=== PATIENT | female | born 1965 | race Caucasian/White ===

== ENCOUNTER 2020-03-01 17:03 | Outpatient (REF) | payer OTHER, SELFPAY ==
--- NOTE | 2020-03-01 | MM_ITS ---
EXAMINATION: MM SCREENING DIGITAL BREAST TOMOSYNTHESIS, BILATERAL CLINICAL INFORMATION: Screening. Asymptomatic. The lifetime risk of breast cancer based on the Tyrer-Cuzick Model is 16%. COMPARISON: Mammography: August 11, 2018 and studies dating back to January 31, 2012. TECHNIQUE: Digital breast tomosynthesis is performed in both the craniocaudal and mediolateral oblique views along with computer-aided detection (CAD). Synthesized 2D images are generated from the tomosynthesis. Cleavage view performed. FINDINGS: The breasts are almost entirely fatty (ACR BI-RADS breast composition Category a). There are no significant masses, abnormal calcifications, or other abnormalities. MM/MM tomosynthesis screening BI IMPRESSION: There are no significant changes from prior study. ASSESSMENT: BI-RADS 1: Negative RECOMMENDATION: Routine annual mammography screening. This patient's information was entered into a reminder system with a target due date for their next mammogram.
== END 2020-03-01 17:04 | disposition home or self-care (01) ==
LOC: HO.MAMMO 17:03
PROVIDERS: PCP Internal Medicine; Visit Provider Internal Medicine
DX: Z12.31 Encounter for screening mammogram for malignant neoplasm of breast (principal)
CPT/HCPCS: 77063; 77067

== ENCOUNTER 2020-05-24 11:11 | Outpatient (REF) | payer OTHER, SELFPAY ==
[2020-05-24 14:33] LABS: Alanine Aminotransferase 38 U/L (0-31); Anion Gap 13 (12-20); Aspartate Amino Transferase 35 U/L (5-31); Blood Urea Nitrogen 15 mg/dL (9-16); Calcium 9.4 mg/dL (8.4-10.2); Carbon Dioxide 28 mmol/L (22-29); Chloride 99 mmol/L (96-108); Cholesterol 244 mg/dL; Estimated Glomerular Filt Rate > 60; Glucose Fasting 104 mg/dL (60-99); HDL Cholesterol 76 mg/dL; LDL Cholesterol Calculated 134 mg/dl; Sodium 136 mmol/L (135-145); Triglycerides 174 mg/dL
[2020-05-24 14:55] LABS: Vitamin D 25-OH Total 26.7 ng/mL (>30)
== END 2020-05-24 11:12 | disposition home or self-care (01) ==
LOC: HO.HMGCLDS 11:11
PROVIDERS: PCP Internal Medicine; Visit Provider Internal Medicine
DX: Z00.01 Encounter for general adult medical examination with abnormal findings (principal); E66.01 Morbid (severe) obesity due to excess calories; I10 Essential (primary) hypertension; K21.9 Gastro-esophageal reflux disease without esophagitis
CPT/HCPCS: 36415; 80048; 80061; 82306; 84450; 84460

== ENCOUNTER 2020-06-07 13:12 | Outpatient (REF) | payer OTHER, SELFPAY | END 2020-06-07 13:13 | disposition home or self-care (01) | LOC: HO.LAB 13:12 | PROVIDERS: PCP Internal Medicine; Visit Provider Obstetrics & Gynecology | DX: Z13.89 Encounter for screening for other disorder (principal) ==

== ENCOUNTER → 2020-10-23 08:29 | Outpatient (BNVA) | payer SELFPAY | PROVIDERS: PCP Internal Medicine; Visit Provider Internal Medicine | DX: Z02.79 Encounter for issue of other medical certificate (principal) ==

== ENCOUNTER 2021-02-28 08:46 | Outpatient (REF) | payer OTHER, SELFPAY ==
[2021-02-28 11:39] LABS: Estimated Average Glucose 103 mg/dL; Hemoglobin A1c % 5.2 %
[2021-02-28 11:52] LABS: Alanine Aminotransferase 31 U/L (0-31); Anion Gap 14 (12-20); Aspartate Amino Transferase 31 U/L (5-31); Blood Urea Nitrogen 15 mg/dL (9-16); Calcium 9.6 mg/dL (8.4-10.2); Carbon Dioxide 28 mmol/L (22-29); Chloride 102 mmol/L (96-108); Cholesterol 218 mg/dL; Estimated Glomerular Filt Rate > 60; Glucose Fasting 111 mg/dL (60-99); HDL Cholesterol 64 mg/dL; LDL Cholesterol Calculated 108 mg/dl; Potassium 4.6 mmol/L (3.3-5.1); Sodium 139 mmol/L (135-145); Triglycerides 230 mg/dL
[2021-02-28 12:16] LABS: Vitamin D 25-OH Total 29.9 ng/mL (>30)
== END 2021-02-28 08:47 | disposition home or self-care (01) ==
LOC: HO.HMGCLDS 08:46
PROVIDERS: PCP Internal Medicine; Visit Provider Internal Medicine
DX: E66.01 Morbid (severe) obesity due to excess calories (principal); I10 Essential (primary) hypertension; R73.01 Impaired fasting glucose; Z78.0 Asymptomatic menopausal state
CPT/HCPCS: 36415; 80048; 80061; 82306; 83036; 84450; 84460

== ENCOUNTER → 2021-06-13 09:38 | Outpatient (BNVA) | payer OTHER, SELFPAY | PROVIDERS: PCP Internal Medicine; Visit Provider Obstetrics & Gynecology | DX: Z13.89 Encounter for screening for other disorder (principal) ==

== ENCOUNTER 2021-12-20 08:52 | Outpatient (REF) | payer OTHER, SELFPAY ==
--- NOTE | ~2021-12-20 | MM_ITS ---
EXAMINATION: MM SCREENING DIGITAL BREAST TOMOSYNTHESIS, BILATERAL CLINICAL INFORMATION: Screening. Asymptomatic. Prior history reduction mammoplasty, 2005. The lifetime risk of breast cancer based on the Tyrer-Cuzick Model is 15%. COMPARISON: Mammography: 03/01/2020, 08/11/2018, 07/29/2017 TECHNIQUE: Digital breast tomosynthesis is performed in both the craniocaudal and mediolateral oblique views along with computer-aided detection (CAD). Synthesized 2D images are generated from the tomosynthesis. FINDINGS: There are scattered areas of fibroglandular density (ACR BI-RADS breast composition Category b). Parenchymal pattern is similar to prior studies exam. Minor stromal scarring consistent with the prior reduction mammoplasty. Benign asymmetric density mid medial left breast stable. There is no developing density or interval mass or architectural abnormality. No abnormal calcifications. No significant changes. MM/MM tomosynthesis screening BI IMPRESSION: No mammographic evidence of malignancy. ASSESSMENT: BI-RADS 2: Benign RECOMMENDATION: Routine annual mammography screening. This patient's information was entered into a reminder system with a target due date for their next mammogram.
== END 2021-12-20 08:53 | disposition home or self-care (01) ==
LOC: HO.MAMMO 08:52
PROVIDERS: PCP Internal Medicine; Visit Provider Internal Medicine
DX: Z12.31 Encounter for screening mammogram for malignant neoplasm of breast (principal)
CPT/HCPCS: 77063; 77067

== ENCOUNTER 2022-10-22 10:30 | Outpatient (AMB) | payer MEDICAID, SELFPAY ==
--- NOTE | 2022-10-22 10:33 | A.OFFVIS_ITS ---
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 Last Pap smear was in 2012.? The patient had a hysterectomy for vaginal bleeding, has history of low-grade NORMA prior to that.? Last mammogram was BI-RADS 2 in 12/13.? Last colonoscopy 5 years ago, the patient will be due for another screening colonoscopy in 5 years? [facility] Medical History Bee sting allergy Essential hypertension Facial skin lesion GERD (gastroesophageal reflux disease) Impaired fasting glucose LGSIL (low grade squamous intraepithelial dysplasia) Morbid obesity Postmenopausal symptoms Surgical History History of appendectomy History of knee surgery History of removal of ovarian cyst History of ureter stent History of vaginal hysterectomy Hx of cholecystectomy S/P total knee arthroplasty Status post breast reduction Family History Father Myocardial infarction Mother No problems noted. Brother No problems noted. Brother No problems noted. Sister Breast CA Sister No problems noted. Sister No problems noted. Social History Housing: House Alcohol intake: current Patient Tobacco Use Status: Never used Tobacco e-Cigarette/Vaping Use: Never Used Current occupational status: employed Female Reproductive History Menstrual Age of Menarche: 7 control method: permanent sterilization Total pregnancies: 8 Full term: 3 Number of Living Children: 3 Ab spontaneous: 5 Date of last pap smear: 10/01/12 (CIN1) History of abnormal pap smear: Yes Date of Mammogram: 12/20/21 Review of Systems Const All systems reviewed & are unremarkable except as noted in HPI and below Card Reports as per HPI and Reports no additional complaints Resp Reports as per HPI and Reports no additional complaints GI Reports as per HPI and Reports no additional complaints Reports as per HPI Physical Exam Vital Signs: BMI result Body Mass Index 44.6 Const General: cooperative, healthy appearing and comfortable General: Yes bladder normal to palpation External Female Exam: No lesion Speculum Exam - Vagina: normal appearance of the vagina, normal vaginal discharge and not erythematous Speculum Exam - Cervix: Cervix absent Bimanual exam- vagina & uterus: bladder normal to palpation and uterus absent Bimanual Exam- Adnexa, other: Other (No masses detected) Assessment & Plan Assessment & Plan (1) Well woman exam: Comment: History of EFREM 1 in 2012 Code(s): Z01.419 - Encounter for gynecological examination (general) (routine) without abnormal findings Plan: No Co testing indicate. Counseled the patient about the recommended dietary allowance of 1200 mg of Calcium & 600 IU of vitamin D. Instruction given to patient to schedule her next screening Mammogram in 12/14, order placed , the patient is up-to-date with her screening colonoscopy . The patient was instructed to perform monthly self-breast exams and schedule annual exam in a year; all questions answered and the patient verbalized understanding. Orders: Orders MM screening mammo BI Today Z12.31 - Encounter for screening mammogram for malignant neoplasm of breast Coding Level of Care Code Est Pt Prev Care 40-64y(55804) Diagnoses Well woman exam Z01.419
[2022-10-22 10:38] VITALS: BP 126/78; BMI 44.6
== END 2022-10-22 10:51 | disposition home or self-care (01) ==
LOC: HO.HWS 10:30
PROVIDERS: PCP Internal Medicine; Visit Provider Obstetrics & Gynecology
DX: Z01.419 Encounter for gynecological examination (general) (routine) without abnormal findings (principal)
CPT/HCPCS: 99396

== ENCOUNTER → 2022-10-22 10:30 | Outpatient (BNVA) | payer OTHER, SELFPAY | PROVIDERS: PCP Internal Medicine; Visit Provider Obstetrics & Gynecology ==

== ENCOUNTER 2022-10-24 14:59 | Outpatient (AMB) | payer OTHER, SELFPAY ==
[2022-10-24 15:31] VITALS: BP 126/78; PULSE 86; O2SAT 96; BMI 44.3
--- NOTE | 2022-10-24 15:31 | MHC.PC.OV ---
Vital Signs 10/24/22 15:31 Height 5 ft 2 in Weight 242 lb BMI 44.3 BP 126/78 Blood Pressure Location Rt brachial Position Sitting Pulse 86 Pulse Source Pulse Oximeter Pulse Oximetry (%) 96 Oxygen Delivery Method Room Air Intake Visit Reasons: BP follow up Allergies bee pollen [BEE STINGS] Allergy (Severe, Verified 10/24/22 15:56) ANAPHALAXIS Medication List - Last Reconciled 10/24/22 by Rocio Jordan MD albuterol sulfate 90 mcg/actuation 2 puffs inhalation Q4-6H PRN cetirizine (Zyrtec) 10 mg PO DAILY PRN epinephrine 0.3 mg (0.3 mL) IM DIRECTED fluoxetine 10 mg PO DAILY hydrochlorothiazide 12.5 mg PO QAM lorazepam 0.5 mg PO DAILY PRN magnesium 500 mg PO DAILY multivitamin 1 tab PO DAILY olmesartan 5 mg PO DAILY pantoprazole 40 mg PO DAILY rhubarb root extract (Estroven Complete Menopause Relief) mg PO Tobacco use date assessed: 10/24/22 Dental Screening Dental Screen Date: 10/24/22 Did you have a dental visit in the last 12 months?: Yes Did you have a dental problem in the last 6 months where you did not have access to dental care?: No Was dental information given to patient?: No HPI BP follow up HPI Details 57-year-old lady with hypertension, morbid obesity impaired fasting glucose, here today for follow-up on her blood pressure. She states that her blood pressure has been staying elevated over the last several weeks, admits to not being compliant with her diet and not getting any regular exercise due to the oppressive heat. Currently taking olmesartan 5 mg once a day, but has taken 25 mg of her hydrochlorothiazide instead of 12.5 mg 2 days last week, as she has started to feel bloated and blood pressure has been elevated . [facility] Medical History Bee sting allergy Essential hypertension Facial skin lesion GERD (gastroesophageal reflux disease) Impaired fasting glucose LGSIL (low grade squamous intraepithelial dysplasia) Morbid obesity Postmenopausal symptoms Surgical History History of appendectomy History of knee surgery History of removal of ovarian cyst History of ureter stent History of vaginal hysterectomy Hx of cholecystectomy S/P total knee arthroplasty Status post breast reduction Family History Father Myocardial infarction Mother No problems noted. Brother No problems noted. Brother No problems noted. Sister Breast CA Sister No problems noted. Sister No problems noted. Social History Housing: House Alcohol intake: current Patient Tobacco Use Status: Never used Tobacco e-Cigarette/Vaping Use: Never Used Current occupational status: employed Cognitive needs: No Hearing needs: No Vision needs: No Female Reproductive History Menstrual Age of Menarche: 7 Questionnaire PHQ-9 Over the last 2 weeks, how often have you been bothered by any of the following problems? Depression Screening Interpretation: Negative Source: Developed by Drs. Eip Resendez, Faye Garay, Dalton Rasmussen and colleagues, with an educational deepti from [employer]. Thrive Questionnaire Date Thrive assessed: 03/07/21 AUDIT C Alcohol Use Questionnaire (AUDIT-C) 1. How often do you have a drink containing alcohol?: Monthly or less 2. How many drinks containing alcohol do you have on a typical day when you are drinking?: 1 or 2 3. How often do you have six or more drinks on one occasion?: Never Total Score: 1 Score Reviewed/Action Taken: Yes NADIA-7 AMB Questionnaire NADIA-7 Date NADIA - 7 assessed: 03/07/21 Source: Developed by Drs. Epi Resendez, Faye Garay, Dalton Rasmussen and colleagues, with an educational deepti from [employer]. Review of Systems Const All systems reviewed & are unremarkable except as noted in HPI and below Card Denies chest pain, Denies chest pain with activity, Denies irregular heart rhythm and Denies lightheadedness Resp Reports no additional complaints GI Reports no additional complaints Neuro Reports no additional complaints Physical exam (Primary Care) Vital Signs: Last Vital Signs Pulse 86 10/24/22 15:31 BP 126/78 10/24/22 15:31 Pulse Ox 96 10/24/22 15:31 Oxygen Delivery Method Room Air 10/24/22 15:31 BMI result Body Mass Index 44.3 BMI Assessment/Plan discussion: High BMI High, discussed plan: lifestyle, weight reduction, dietary and physical activity Tobacco/Smoking Status: Tobacco use Status Tobacco use date assessed 10/24/22 10/24/22 15:34 Patient Tobacco Use Status Never used Tobacco 10/24/22 15:34 e-Cigarette/Vaping Use Never Used 10/24/22 15:34 Depression Screening Interpretation: Negative Thrive Assessment: Date of Thrive Assessment Date Thrive assessed 03/07/21 10/24/22 15:34 Const General: comfortable and no acute distress Nutritional Appearance: obese Orientation/consciousness: patient oriented x3 HENMT Ears: external ears normal General nose exam: Normal external nose present, Normal nasal mucous membranes and turbinates present and No nasal discharge present Mouth: oropharynx normal and moist mucous membranes Eyes General: appearance normal, both eyes and all related structures Neck Neck: Yes full ROM, Yes no lymphadenopathy and Yes supple Resp Effort & Inspection: normal respiratory effort and able to speak in complete sentences Auscultation: clear to auscultation bilaterally Cardio Rate: regular rate Rhythm: regular rhythm Heart sounds: S1 normal heart sound present and S2 normal heart sound present GI Inspection: Yes normal to inspection Palpation (GI): Soft to palpation, nontender and no masses Auscultation: normal bowel sounds Neuro General: patient oriented x3, gait normal, tone normal, moves all extremities, Normal light touch and pain sensation and no focal motor deficits Cognition (Neuro): normal cognition Gait exam (Neuro): Normal gait present Motor exam (neuro): 5/5 motor strength present throughout Assessment and Plan Assessment & Plan (1) Essential hypertension: Code(s): I10 - Essential (primary) hypertension Plan: Discontinued olmesartan and hydrochlorothiazide and switched to uncertain-HCTZ at 20-12.5 mg per tablet to take once a day in a.m., Blood pressure goal is less than 130/80. . Reinforced importance of following a low sodium diet, getting regular exercise, and lowering stress levels. (2) Impaired fasting glucose: Code(s): R73.01 - Impaired fasting glucose Plan: Your fasting blood sugars were elevated above 100 mg/dL. Impaired glucose metabolism O2 at risk for developing diabetes mellitus type 2, as well as heart attack and stroke later on. Lifestyle changes at just weight loss, healthy eating habits, and regular exercise are important, and can prevent the progression to diabetes (3) Morbid obesity: Code(s): E66.01 - Morbid (severe) obesity due to excess calories Orders: Orders Alanine Aminotransferase Today E66.01 - Morbid (severe) obesity due to excess calories, I10 - Essential (primary) hypertension, R73.01 - Impaired fasting glucose Aspartate Amino Transferase Today E66.01 - Morbid (severe) obesity due to excess calories, I10 - Essential (primary) hypertension, R73.01 - Impaired fasting glucose Basic Metabolic Panel Fasting Today E66.01 - Morbid (severe) obesity due to excess calories, I10 - Essential (primary) hypertension, R73.01 - Impaired fasting glucose Lipid Panel Today E66.01 - Morbid (severe) obesity due to excess calories, I10 - Essential (primary) hypertension, R73.01 - Impaired fasting glucose Medications: New olmesartan-hydrochlorothiazide 20-12.5 mg 1 tab PO DAILY 90 tabs 1RF Discontinued olmesartan Discontinued Reason: Doctor's Order 5 mg PO DAILY 90 tabs 0RF hydrochlorothiazide Discontinued Reason: Doctor's Order 12.5 mg PO QAM 90 tabs 3RF Coding Level of Care Code Est Pt Level 3 (94949) Diagnoses Essential hypertension I10 Impaired fasting glucose R73.01 Morbid obesity E66.01
== END 2022-10-24 16:09 | disposition home or self-care (01) ==
PROVIDERS: PCP Internal Medicine; Visit Provider Internal Medicine
DX: I10 Essential (primary) hypertension (principal); R73.01 Impaired fasting glucose; E66.01 Morbid (severe) obesity due to excess calories; Z68.41 Body mass index [BMI] 40.0-44.9, adult
CPT/HCPCS: 99213

== ENCOUNTER 2022-10-29 09:23 | Outpatient (REF) | payer OTHER, SELFPAY ==
[2022-10-29 13:14] LABS: Alanine Aminotransferase 44 U/L (0-31); Anion Gap 13 (12-20); Aspartate Amino Transferase 31 U/L (5-31); Blood Urea Nitrogen 13 mg/dL (9-16); Calcium 9.4 mg/dL (8.4-10.2); Carbon Dioxide 30 mmol/L (22-29); Chloride 102 mmol/L (96-108); Cholesterol 180 mg/dL; Estimated Glomerular Filt Rate > 60; Glucose Fasting 108 mg/dL (60-99); HDL Cholesterol 54 mg/dL; LDL Cholesterol Calculated 82 mg/dl; Potassium 3.7 mmol/L (3.3-5.1); Sodium 141 mmol/L (135-145); Triglycerides 223 mg/dL
== END 2022-10-29 09:24 | disposition home or self-care (01) ==
LOC: HO.HMGCLDS 09:23
PROVIDERS: PCP Internal Medicine; Visit Provider Internal Medicine
DX: E66.01 Morbid (severe) obesity due to excess calories (principal); R73.01 Impaired fasting glucose; I10 Essential (primary) hypertension
CPT/HCPCS: 36415; 80048; 80061; 84450; 84460

== ENCOUNTER 2022-11-08 13:18 | Outpatient (AMB) | payer OTHER, SELFPAY ==
[2022-11-08 13:33] VITALS: BP 124/76; PULSE 74; O2SAT 98; BMI 44.6
--- NOTE | 2022-11-08 13:33 | A.OFFPC_ITS ---
Vital Signs 11/08/22 13:33 Height 5 ft 2 in Weight 244 lb BMI 44.6 BP 124/76 Blood Pressure Location Rt brachial Position Sitting Pulse 74 Pulse Source Pulse Oximeter Pulse Oximetry (%) 98 Intake Visit Reasons: PE Intake Note: pt is here for physical exam Rate Marker Required: No Allergies bee pollen [BEE STINGS] Allergy (Severe, Verified 11/08/22 13:46) ANAPHALAXIS Medication List - Last Reconciled 11/08/22 by Rocio Jordan MD albuterol sulfate 90 mcg/actuation 2 puffs inhalation Q4-6H PRN cetirizine (Zyrtec) 10 mg PO DAILY PRN epinephrine 0.3 mg (0.3 mL) IM DIRECTED fluoxetine 10 mg PO DAILY lorazepam 0.5 mg PO DAILY PRN magnesium 500 mg PO DAILY multivitamin 1 tab PO DAILY olmesartan-hydrochlorothiazide 20-12.5 mg 0.5 tabs PO DAILY pantoprazole 40 mg PO DAILY rhubarb root extract (Estroven Complete Menopause Relief) mg PO Tobacco use date assessed: 10/24/22 Dental Screening Dental Screen Date: 11/08/22 Did you have a dental visit in the last 12 months?: Yes Did you have a dental problem in the last 6 months where you did not have access to dental care?: No Was dental information given to patient?: Patient has dentist HPI PE HPI Details 57-year-old lady with hypertension, history of impaired fasting glucose, and history of depression, morbid obesity and chronic GERD, here today for physical exam. Blood pressure stable and controlled on olmesartan-HCTZ . Patient has just been taking half a tablet daily in a.m.. Feels well, with no complaints of headache, no lightheadedness, chest pain or shortness of breath. Gardners lightheaded which he took the whole tablet. She is up-to-date with her screening colonoscopy done [place] [address] Pro, to be repeated again in 2028. She is up-to-date with her screening mammogram, due again in November 2022. [facility] Medical History (Updated 11/11/22 @ 00:30 by Rocio Jordan MD) Bee sting allergy Depression, major, in remission Essential hypertension Facial skin lesion GERD (gastroesophageal reflux disease) Impaired fasting glucose LGSIL (low grade squamous intraepithelial dysplasia) Morbid obesity Postmenopausal symptoms Surgical History History of appendectomy History of knee surgery History of removal of ovarian cyst History of ureter stent History of vaginal hysterectomy Hx of cholecystectomy S/P total knee arthroplasty Status post breast reduction Family History Father Myocardial infarction Mother No problems noted. Brother No problems noted. Brother No problems noted. Sister Breast CA Sister No problems noted. Sister No problems noted. Social History Housing: House Alcohol intake: current Patient Tobacco Use Status: Never used Tobacco e-Cigarette/Vaping Use: Never Used Current occupational status: employed Cognitive needs: No Hearing needs: No Vision needs: No Female Reproductive History Menstrual Age of Menarche: 7 Date of last pap smear: 10/22/22 Date of Mammogram: 12/13/21 Questionnaire PHQ-9 Over the last 2 weeks, how often have you been bothered by any of the following problems? 1. Little interest or pleasure in doing things: not at all 2. Feeling down, depressed, or hopeless: not at all 3. Trouble falling or staying asleep, or sleeping too much: not at all 4. Feeling tired or having little energy: not at all 5. Poor appetite or overeating: not at all 6. Feeling bad about yourself - or that you are a failure or have let yourself or your family down: not at all 7. Trouble concentrating on things, such as reading the newspaper or watching television: not at all 8. Moving or speaking so slowly that other people could have noticed. Or the opposite - being so fidgety or restless that you have been moving around a lot more than usual: not at all 9. Thoughts that you would be better off or of hurting yourself in some way: not at all Total score: 0 Depression Screening Interpretation: Negative [id number] - PHQ-9 Billing: Yes Source: Developed by Drs. Epi Resendez, Faye Garay, Dalton Rasmussen and colleagues, with an educational deepti from [employer]. Thrive Questionnaire Date Thrive assessed: 11/08/22 I am a: Patient What is your living situation today?: I have a steady place to live Within the past 12 months, did the food you bought not last and you didn't have the money to get more?: Never true Within the past 12 months, did you worry whether your food would run out before you got money to buy more?: Never true Do you have trouble paying for medicines?: No Do you have trouble getting transportation to medical appointments?: No Do you have trouble paying your heating and electricity bill?: No Do you have trouble taking care of your child, family member or friend?: No Do you have trouble with day-to-day activities such as bathing, preparing meals, shopping, managing finances, etc.?: No Are you currently unemployed and looking for a job?: No Are you interested in more education?: No Please select the resources that you would like help with: None Currently or been in a relationship where the following occur: no concerns reported AUDIT C Alcohol Use Questionnaire (AUDIT-C) 1. How often do you have a drink containing alcohol?: 2-3 times a week 2. How many drinks containing alcohol do you have on a typical day when you are drinking?: 1 or 2 3. How often do you have six or more drinks on one occasion?: Never Total Score: 3 NADIA-7 AMB Questionnaire NADIA-7 Date NADIA - 7 assessed: 11/08/22 Feeling nervous, anxious, or on edge: 0 = Not at all Not being able to stop or control worryin = Not at all Worrying too much about different things: 0 = Not at all Trouble relaxin = Not at all Being so restless that it is hard to sit still: 0 = Not at all Becoming easily annoyed or irritable: 0 = Not at all Feeling afraid as if something awful might happen: 0 = Not at all Total NADIA-7 score (0-4 normal; 5-9 mild; 10-14 moderate; 15-21 severe): 0 Source: Developed by Drs. Epi Resendez, Faye Garay, Dalton Rasmussen and colleagues, with an educational deepti from [employer]. NADIA-7 Assessment Billing NADIA-7 Assessment Tool: NADIA-7 Assessment 74531 Review of Systems Const Denies body aches, Denies fatigue, Denies fever(s), Denies headache(s), Denies lethargy, Denies malaise and Reports weight gain Eyes Denies change in vision ENT Denies dizziness, Denies headache(s), Denies hoarseness, Denies nasal discharge and Denies sore throat Card Denies chest pain, Denies chest pain with activity, Denies dyspnea and Denies dyspnea on exertion Resp Denies cough, Denies pain on inspiration, Denies pain with cough, Denies dyspnea, Denies dyspnea on exertion and Denies wheezing GI Denies abdominal pain, Denies change in bowel habits, Denies heartburn and Denies nausea Denies hematuria and Denies dysuria Musc Reports no additional complaints Skin/Breast Denies breast pain, Denies breast mass and Denies rash Neuro Denies dizziness and Denies headache(s) Psych Reports no additional complaints Endo Denies fatigue Real/Lymph Reports no additional complaints Aller/Immun Denies wheezing Physical exam (Primary Care) Vital Signs: Last Vital Signs Pulse 74 11/08/22 13:33 BP 124/76 11/08/22 13:33 Pulse Ox 98 11/08/22 13:33 BMI result Body Mass Index 44.6 BMI Assessment/Plan discussion: High BMI High, discussed plan: lifestyle, weight reduction, dietary and physical activity Tobacco/Smoking Status: Tobacco use Status Tobacco use date assessed 10/24/22 11/08/22 13:35 Patient Tobacco Use Status Never used Tobacco 11/08/22 13:35 e-Cigarette/Vaping Use Never Used 11/08/22 13:35 PHQ-9: PHQ-9 Score PHQ-9: Total score 0 11/08/22 13:52 Depression Screening Interpretation: Negative Thrive Assessment: Date of Thrive Assessment Date Thrive assessed 11/08/22 11/08/22 13:42 Currently or been in a relationship where the following occur: no concerns reported Const General: comfortable and no acute distress Nutritional Appearance: obese Orientation/consciousness: patient oriented x3 HENMT Ears: external ears normal General nose exam: Normal external nose present, Normal nasal mucous membranes and turbinates present and No nasal discharge present Mouth: oropharynx normal and moist mucous membranes Eyes General: appearance normal, both eyes and all related structures Neck Neck: Yes full ROM, Yes no lymphadenopathy and Yes supple Resp Effort & Inspection: normal respiratory effort and able to speak in complete sentences Auscultation: clear to auscultation bilaterally Cardio Rate: regular rate Rhythm: regular rhythm Heart sounds: S1 normal heart sound present and S2 normal heart sound present GI Inspection: Yes normal to inspection Palpation (GI): Soft to palpation, nontender and no masses Auscultation: normal bowel sounds General: Yes no CVA tenderness Back/Spine/Pelvis Back: no CVA tenderness and No back tenderness Skin General skin exam: no rashes or lesions noted Neuro General: patient oriented x3, gait normal, tone normal, moves all extremities, Normal light touch and pain sensation and no focal motor deficits Cognition (Neuro): normal cognition Gait exam (Neuro): Normal gait present Motor exam (neuro): 5/5 motor strength present throughout Extrem General: Yes normal to inspection, Yes full ROM, Yes no joint enlargement, Yes no clubbing, cyanosis or edema and Yes normal gait Psych Appearance: grossly normal and well kempt Mental Status: mental status grossly normal Speech and movement: Normal speech and movement present Affect: normal affect Attitude: cooperative Thought process: Normal thought process present Thought content: Normal thought content present Results Reviewed Results Reviewed: ENTERED: 10/29/[address] [facility] [address]: ORDERED: Met Prof Fast, AST, ALT, Lipid Panel Test Result Flag Reference Site Sodium 141 135-145 mmol/L Potassium 3.7 3.3-5.1 mmol/L CL 102 96-108 mmol/L CO2 30 H 22-29 mmol/L Gap 13 12-20 BUN 13 9-16 mg/dL Creat 0.75 0.5-1.4 mg/dL EGFR > 60 NOTE: For -[place] individuals, multiply the result by 1.210. Chronic Kidney Disease: Estimated GFR < 60 mL/min/1.73m2 Severe Kidney Disease: Estimated GFR < 15 mL/min/1.73m2 FBS 108 H 60-99 mg/dL A fasting glucose from 100-125 mg/dl is considered impaired (pre-diabetes). CA 9.4 8.4-10.2 mg/dL AST (GOT) 31 5-31 U/L ALT (GPT) 44 H 0-31 U/L Triglyceride 223 mg/dL Desirable Triglyceride: less than 150 mg/dL Borderline High Triglyceride 150-199 mg/dL High Triglyceride: 200-499 mg/dL Very High Triglyceride: greater than or equal to 5OO mg/dL Chol 180 mg/dL Desirable Cholesterol: less than 200 mg/dL Borderline High Cholesterol: 200-239 mg/dL High Cholesterol: greater than 239 mg/dL LDL Calculated 82 mg/dl Desirable LDL: less than 100 mg/dL Near Optimal/Above Optimal LDL: 110-129 mg/dL Borderline High LDL: 130-159 mg/dL High LDL: 160-189 mg/dL Very High LDL: greater than or equal to 190 mg/dL HDL 54 mg/dL Desirable HDL: greater than 40 mg/dL Note: This HDL assay may give artificially low results in patients with liver disease. Assessment and Plan Assessment & Plan (1) Annual visit for general adult medical examination with abnormal findings: Code(s): Z00.01 - Encounter for general adult medical examination with abnormal findings Plan: Reviewed recent fasting labs with patient. Recommended dental visit every 6 months and regular eye exams, at least every 2 years. Take adequate calcium in diet and vitamin-D 3 at 2000 IU per cap once a day, in addition to weight- bearing exercises to help maintain good muscle tone and weight control. Instructed to do self-breast exam, and continue to get yearly mammogram. Up-to-date with her screening colonoscopy. Currently goes to OBGYN at [facility] for her routine pelvic exam. Reminded patient to get her yearly flu vaccine and swell as her shingles vaccination. Up-to-date with her Tdap and COVID vaccine (2) Essential hypertension: Code(s): I10 - Essential (primary) hypertension Plan: Blood pressure at goal of less than 130/80. Discontinued olmesartan -HCTZ tablet, and switched instead to olmesartan 10 mg daily in a.m. together with hydrochlorothiazide 12.5 mg daily in the morning. Reinforced importance of following a low sodium diet, getting regular exercise, and lowering stress levels. Note for work given stating that she is able to go back to work without any restrictions (3) Impaired fasting glucose: Code(s): R73.01 - Impaired fasting glucose Plan: Your fasting blood sugars elevated above 100 mg/dL. Impaired glucose metabolism O2 at risk for developing diabetes mellitus type 2, as well as heart attack and stroke later on. Lifestyle changes at just weight loss, healthy eating habits, and regular exercise are important, and can prevent the progression to diabetes (4) Depression, major, in remission: Code(s): F32.5 - Major depressive disorder, single episode, in full remission Plan: Stable and controlled on fluoxetine and takes lorazepam only as needed, usually when flying (5) Morbid obesity: Code(s): E66.01 - Morbid (severe) obesity due to excess calories Plan: Discussed need to increase activity and wt reduction. Recommended focusing on improving your health instead of dieting. : Eat Mediterranean diet, limit foods high in fat, sugar, and calories, eat slowly, pay attention to portion sizes, plan your meals ahead of time, start regular physical activity 150 minutes of moderate intensity exercise or 90 minutes/week of vigorous exercise and increase water intake. (6) Bee sting allergy: Code(s): Z91.030 - Bee allergy status Plan: Patient already has EpiPen at home Medications: New olmesartan 10 mg (2 x 5 mg) PO DAILY 90 days 180 tabs 1RF Changed From hydrochlorothiazide 12.5 mg PO DAILY 30 days 30 tabs 3RF To hydrochlorothiazide 12.5 mg PO DAILY 90 days 90 tabs 1RF Coding Level of Care Code Est Pt Prev Care 40-64y(42949) Diagnoses Annual visit for general adult medical examination with abnormal findings Z00.01 Essential hypertension I10 Impaired fasting glucose R73.01 Depression, major, in remission F32.5 Morbid obesity E66.01 Bee sting allergy Z91.030 Additional Codes NADIA-7 Assessment Billing - NADIA-7 Assessment Tool: NADIA-7 Assessment 39003 ([id number])
== END 2022-11-08 14:39 | disposition home or self-care (01) ==
PROVIDERS: PCP Internal Medicine; Visit Provider Internal Medicine
DX: Z00.01 Encounter for general adult medical examination with abnormal findings (principal); I10 Essential (primary) hypertension; F32.5 Major depressive disorder, single episode, in full remission; E66.01 Morbid (severe) obesity due to excess calories; Z91.030 Bee allergy status; Z68.41 Body mass index [BMI] 40.0-44.9, adult; R73.01 Impaired fasting glucose
CPT/HCPCS: 99396

== ENCOUNTER 2022-12-26 08:55 | Outpatient (REF) | payer OTHER, SELFPAY | END 2022-12-26 08:56 | disposition home or self-care (01) | LOC: HO.MAMMO 08:55 | PROVIDERS: PCP Internal Medicine; Visit Provider Internal Medicine | DX: Z12.31 Encounter for screening mammogram for malignant neoplasm of breast (principal) | CPT/HCPCS: 77063; 77067 ==

== ENCOUNTER → 2022-12-26 09:30 | Outpatient (BNV) | payer OTHER, SELFPAY | PROVIDERS: PCP Internal Medicine; Visit Provider Radiology Diagnostic Radiology | DX: Z12.31 Encounter for screening mammogram for malignant neoplasm of breast (principal) | CPT/HCPCS: 77063; 77067 ==

== ENCOUNTER 2023-12-05 08:51 | Outpatient (AMB) | payer OTHER, SELFPAY ==
--- NOTE | 2023-12-05 08:48 | MHC.PC.OV ---
Intake Visit Reasons: GI concerns Intake Note: Pt is having a telehealth visit to discuss to get GI referral Allergies bee pollen [BEE STINGS] Allergy (Severe, Verified 12/05/23 09:03) [facility]PHAL[facility]IS Medication List - Last Reconciled 12/05/23 by Rocio Jordan MD albuterol sulfate 90 mcg/actuation 2 puffs inhalation Q4-6H PRN cetirizine (Zyrtec) 10 mg PO DAILY PRN epinephrine 0.3 mg (0.3 mL) IM DIRECTED fluoxetine 10 mg PO DAILY hydrochlorothiazide 12.5 mg PO DAILY 90 days lorazepam 0.5 mg PO DAILY PRN magnesium 500 mg PO DAILY multivitamin 1 tab PO DAILY olmesartan 10 mg (2 x 5 mg) PO DAILY 90 days pantoprazole 40 mg PO DAILY rhubarb root extract (Estroven Complete Menopause Relief) mg PO Tobacco use date assessed: 12/05/23 Dental Screening Dental Screen Date: 12/05/23 Did you have a dental visit in the last 12 months?: Yes Did you have a dental problem in the last 6 months where you did not have access to dental care?: No Was dental information given to patient?: Patient has dentist HPI GI concerns HPI Details 58-year-old lady here today complaining of recurrent episodes of abdominal bloating cramping and passage of yellowish loose stools on and off for the last several months, this has been occurring for the last several years since she had her gallbladder removed. Patient when questioned however has not been avoiding eating fatty greasy foods. . She also has been having difficulty with weight loss, despite limiting the amount of carbs and staying active. She would like to see if she can be eligible to get started on a weight loss medication like Wegovy. [facility] Medical History Depression, major, in remission Facial skin lesion Impaired fasting glucose Postmenopausal symptoms LGSIL (low grade squamous intraepithelial dysplasia) Morbid obesity Bee sting allergy GERD (gastroesophageal reflux disease) Essential hypertension Surgical History S/P total knee arthroplasty History of ureter stent History of knee surgery History of vaginal hysterectomy Hx of cholecystectomy History of appendectomy History of removal of ovarian cyst Status post breast reduction Family History Father Myocardial infarction Mother No problems noted. Brother No problems noted. Brother No problems noted. Sister Breast CA Sister No problems noted. Sister No problems noted. Social History Housing: House Alcohol intake: current Patient Tobacco Use Status: Never used Tobacco e-Cigarette/Vaping Use: Never Used Current occupational status: employed Cognitive needs: No Hearing needs: No Vision needs: No Female Reproductive History Menstrual Age of Menarche: 7 Questionnaire PHQ-9 Over the last 2 weeks, how often have you been bothered by any of the following problems? 1. Little interest or pleasure in doing things: not at all 2. Feeling down, depressed, or hopeless: not at all 3. Trouble falling or staying asleep, or sleeping too much: several days 4. Feeling tired or having little energy: not at all 5. Poor appetite or overeating: not at all 6. Feeling bad about yourself - or that you are a failure or have let yourself or your family down: not at all 7. Trouble concentrating on things, such as reading the newspaper or watching television: not at all 8. Moving or speaking so slowly that other people could have noticed. Or the opposite - being so fidgety or restless that you have been moving around a lot more than usual: not at all 9. Thoughts that you would be better off or of hurting yourself in some way: not at all Total score: 1 Depression Screening Interpretation: Negative Depression Screening Done: Yes 00759 - PHQ-9 Billing: Yes Source: Developed by Drs. Epi Resendez, Faye Garay, Dalton Rasmussen and colleagues, with an educational edepti from [employer]. Thrive Questionnaire Date Thrive assessed: 12/05/23 I am a: Patient What is your living situation today?: I have a steady place to live Within the past 12 months, did the food you bought not last and you didn't have the money to get more?: Never true Within the past 12 months, did you worry whether your food would run out before you got money to buy more?: Never true Do you have trouble paying for medicines?: No Do you have trouble getting transportation to medical appointments?: No Do you have trouble paying your heating and electricity bill?: No Do you have trouble taking care of your child, family member or friend?: No Do you have trouble with day-to-day activities such as bathing, preparing meals, shopping, managing finances, etc.?: No Are you currently unemployed and looking for a job?: Yes Are you interested in more education?: No Please select the resources that you would like help with: None Currently or been in a relationship where the following occur: No concerns reported THRIVE Score: 0 AUDIT C Alcohol Use Questionnaire (AUDIT-C) 1. How often do you have a drink containing alcohol?: 2-3 times a week 2. How many drinks containing alcohol do you have on a typical day when you are drinking?: 1 or 2 3. How often do you have six or more drinks on one occasion?: Never Total Score: 3 NADIA-7 AMB Questionnaire NADIA-7 Date NADIA - 7 assessed: 12/05/23 Feeling nervous, anxious, or on edge: 0 = Not at all Not being able to stop or control worryin = Not at all Worrying too much about different things: 1 = Several days Trouble relaxin = Several days Being so restless that it is hard to sit still: 0 = Not at all Becoming easily annoyed or irritable: 0 = Not at all Feeling afraid as if something awful might happen: 0 = Not at all Total NADIA-7 score (0-4 normal; 5-9 mild; 10-14 moderate; 15-21 severe): 2 Source: Developed by Drs. Epi Resendez, Faye Garay, Dalton Rasmussen and colleagues, with an educational deepti from [employer]. NADIA-7 Assessment Billing NADIA-7 Assessment Tool: NADIA-7 Assessment 91039 Review of Systems Const Denies fever(s), Denies headache(s), Denies lethargy and Denies malaise ENT Denies dizziness, Denies headache(s), Denies hoarseness and Denies nasal discharge Card Denies chest pain, Denies chest pain with activity, Denies dyspnea and Denies dyspnea on exertion Resp Denies cough, Denies pain on inspiration, Denies pain with cough, Denies dyspnea and Denies dyspnea on exertion GI Reports as per HPI and Denies heartburn Denies hematuria and Denies dysuria Musc Reports no additional complaints Neuro Denies dizziness and Denies headache(s) Psych Reports no additional complaints Endo Reports no additional complaints Real/Lymph Reports no additional complaints Physical exam (Primary Care) Tobacco/Smoking Status: Tobacco use Status Tobacco use date assessed 12/05/23 12/05/23 08:49 Patient Tobacco Use Status Never used Tobacco 12/05/23 08:49 e-Cigarette/Vaping Use Never Used 12/05/23 08:49 PHQ-9: PHQ-9 Score PHQ-9: Total score 1 12/05/23 09:15 Depression Screening Interpretation: Negative Thrive Assessment: Date of Thrive Assessment Date Thrive assessed 12/05/23 12/05/23 08:51 Currently or been in a relationship where the following occur: No concerns reported Telehealth Telehealth Telehealth Platform: [employer] Location of provider rendering services: practice address Location of patient: address on file Patient Identification confirmed using: Name, : Yes Telehealth method: video Patient verbally consented to treatment: Yes Patient verbally consented to billing insurance company: Yes Patient informed of any privacy concerns related to visit: Yes Minutes spent on Phone/Video with Pt.: 15 Assessment and Plan Assessment & Plan (1) Morbid obesity: Code(s): E66.01 - Morbid (severe) obesity due to excess calories Plan: Will schedule her for an appointment to discuss treatment options for weight loss. (2) Change in bowel habit: Code(s): R19.4 - Change in bowel habit (3) Abdominal bloating: Code(s): R14.0 - Abdominal distension (gaseous) (4) History of cholecystectomy: Code(s): Z90.49 - Acquired absence of other specified parts of digestive tract Plan Advise patient to do the following Go easy on the fat.?Don't eat high-fat foods, fried and greasy foods, and fatty sauces and gravies for at least a week after surgery. Instead, choose fat-free or low-fat foods. Low-fat foods are those with no more than 3 grams of fat in a serving. Check labels and follow the serving size listed. Increase the fiber in your diet.?This can help make bowel movements more regular. Add soluble fiber, such as oats and barley, to your diet. But be sure to increase the amount of fiber slowly, such as over several weeks, because too much fiber at first can make gas and cramping worse. Eat smaller, more-frequent meals.?This may ensure a better mix with available bile. A healthy meal should include small amounts of lean protein, such as poultry, fish or fat-free dairy, along with vegetables, fruits and whole grains. Also try limiting foods that tend to worsen diarrhea, including:; Caffeine. Dairy products. Very sweet foods. Orders: Referrals Gastroenterology Referral R14.0 - Abdominal distension (gaseous), R19.4 - Change in bowel habit Coding Level of Care Code Tele Est Pt Level 3 (06092) Diagnoses Morbid obesity E66.01 Change in bowel habit R19.4 Abdominal bloating R14.0 History of cholecystectomy Z90.49 Additional Codes NADIA-7 Assessment Billing - NADIA-7 Assessment Tool: NADIA-7 Assessment 70803 ([id number])
== END 2023-12-05 11:57 | disposition home or self-care (01) ==
PROVIDERS: PCP Internal Medicine; Visit Provider Internal Medicine
DX: R19.4 Change in bowel habit (principal); E66.01 Morbid (severe) obesity due to excess calories; R14.0 Abdominal distension (gaseous); Z90.49 Acquired absence of other specified parts of digestive tract
CPT/HCPCS: 99213

== ENCOUNTER 2024-01-01 08:53 | Outpatient (REF) | payer OTHER, SELFPAY ==
--- NOTE | ~2024-01-01 | MM_ITS ---
EXAMINATION: MM SCREENING DIGITAL BREAST TOMOSYNTHESIS, BILATERAL CLINICAL INFORMATION: Screening. Asymptomatic. COMPARISON: Mammography: Comparison is made with available priors TECHNIQUE: Digital breast mammography with tomosynthesis is performed in both the craniocaudal and mediolateral oblique views along with computer-aided detection (CAD). FINDINGS: There are scattered areas of fibroglandular density (ACR BI-RADS breast composition Category b). There are no significant masses, abnormal calcifications, or other abnormalities. MM/MM tomosynthesis screening BI IMPRESSION: No mammographic evidence of malignancy. ASSESSMENT: BI-RADS BI-RADS 1 - Negative RECOMMENDATION: Routine annual mammography screening. 1 year F/U This examination should not preclude the clinical evaluation of a suspicious palpable abnormality. This patient's information was entered into a reminder system with a target due date for their next mammogram. Electronically signed by: Lisset Sarabia DO 01/13/2024 12:14 PM EDT
== END 2024-01-01 08:54 | disposition home or self-care (01) ==
LOC: HO.MAMMO 08:53
PROVIDERS: PCP Internal Medicine; Visit Provider Internal Medicine
DX: Z12.31 Encounter for screening mammogram for malignant neoplasm of breast (principal)
CPT/HCPCS: 77063; 77067

== ENCOUNTER → 2024-01-01 09:15 | Outpatient (BNV) | payer OTHER, SELFPAY | PROVIDERS: PCP Internal Medicine; Visit Provider Internal Medicine | DX: Z12.31 Encounter for screening mammogram for malignant neoplasm of breast (principal) | CPT/HCPCS: 77063; 77067 ==

== ENCOUNTER 2024-01-14 08:57 | Outpatient (AMB) | payer OTHER, SELFPAY ==
--- NOTE | 2024-01-14 09:23 | MHC.OFFVIS ---
Vital Signs 01/14/24 09:28 Height 5 ft Weight 240 lb BMI 46.9 BP 110/70 Intake Visit Reasons: [employer]ATE annual exam [employer] Required: No Information Interpreted: non-clinical & clinical Shower Screen Installer: Shower Screen Installer Present (Vaishnavi PALMER) Accompanied by: Self / Same As Patient Allergies bee pollen [BEE STINGS] Allergy (Severe, Verified 01/14/24 09:28) ANAPHALAXIS Is last menstrual period known: No (hysterectomy) Post menopausal: Yes HPI Comments Details: The patient is presenting for annual exam no complaints.? Last Pap smear was in 2012.? The patient had a hysterectomy for vaginal bleeding, has history of low-grade NORMA prior to that.? Last mammogram was BI-RADS 1 in 01/14. Last colonoscopy six years ago, the patient will be due for another screening colonoscopy in 4 years? [facility] Medical History Depression, major, in remission Facial skin lesion Impaired fasting glucose Postmenopausal symptoms LGSIL (low grade squamous intraepithelial dysplasia) Morbid obesity Bee sting allergy GERD (gastroesophageal reflux disease) Essential hypertension Surgical History S/P total knee arthroplasty History of ureter stent History of knee surgery History of vaginal hysterectomy Hx of cholecystectomy History of appendectomy History of removal of ovarian cyst Status post breast reduction Family History Father Myocardial infarction Mother No problems noted. Brother No problems noted. Brother No problems noted. Sister Breast CA Sister No problems noted. Sister No problems noted. Social History Housing: House Alcohol intake: current Patient Tobacco Use Status: Never used Tobacco e-Cigarette/Vaping Use: Never Used Current occupational status: employed Cognitive needs: No Hearing needs: No Vision needs: No Female Reproductive History Menstrual Age of Menarche: 7 Menopause type: surgical Total pregnancies: 8 Full term: 3 Number of Living Children: 3 Ab spontaneous: 5 Date of Mammogram: 01/01/24 Review of Systems Const All systems reviewed & are unremarkable except as noted in HPI and below Card Reports as per HPI and Reports no additional complaints Resp Reports as per HPI and Reports no additional complaints GI Reports as per HPI and Reports no additional complaints Reports as per HPI Physical Exam Vital Signs: Last Vital Signs BP 110/70 01/14/24 09:28 BMI result Body Mass Index 46.9 Const General: cooperative, healthy appearing and comfortable General: Yes bladder normal to palpation External Female Exam: No lesion Speculum Exam - Vagina: normal appearance of the vagina, normal vaginal discharge and not erythematous Speculum Exam - Cervix: Cervix absent Bimanual exam- vagina & uterus: bladder normal to palpation and uterus absent Bimanual Exam- Adnexa, other: Other (No masses detected) Assessment & Plan Assessment & Plan (1) Well woman exam: Comment: History of EFREM 1 in 2012 Code(s): Z01.419 - Encounter for gynecological examination (general) (routine) without abnormal findings Category: Medical Plan: Co testing not indicated since the patient is status post hysterectomy with no history of high-grade cervical dysplasia. Counseled the patient about the recommended dietary allowance of 1200 mg of Calcium & 600 IU of vitamin D. Instructions given the patient to schedule next screening Mammogram in 01/15. The patient was instructed to perform monthly self-breast exams and schedule annual exam in a year. All questions answered and the patient verbalized understanding. Coding Level of Care Code Est Pt Prev Care 40-64y(81471) Diagnoses Well woman exam Z01.419
[2024-01-14 09:28] VITALS: BP 110/70; BMI 46.9
== END 2024-01-14 09:41 | disposition home or self-care (01) ==
PROVIDERS: PCP Internal Medicine; Visit Provider Obstetrics & Gynecology
DX: Z01.419 Encounter for gynecological examination (general) (routine) without abnormal findings (principal)
CPT/HCPCS: 99396

== ENCOUNTER → 2024-01-14 08:57 | Outpatient (BNVA) | payer OTHER, SELFPAY | PROVIDERS: PCP Internal Medicine; Visit Provider Obstetrics & Gynecology | DX: Z01.419 Encounter for gynecological examination (general) (routine) without abnormal findings (principal) | CPT/HCPCS: 99396 ==

== ENCOUNTER 2024-07-05 09:56 | Outpatient (AMB) | payer OTHER, SELFPAY ==
--- NOTE | 2024-07-05 11:03 | MHC.PC.OV ---
Vital Signs 07/05/24 11:11 07/05/24 11:33 Height 5 ft Weight 247 lb BMI 48.2 BP 138/92 H 130/90 H Blood Pressure Location Lt brachial Lt brachial Position Sitting Sitting Respiration 16 Pulse 72 Pulse Source Pulse Oximeter Temp 98.0 F Temp Source Oral Pulse Oximetry (%) 94 Oxygen Delivery Method Room Air Intake Visit Reasons: Annual PE-reschedule Intake Note: Pt is here today for her PE Allergies bee pollen [BEE STINGS] Allergy (Severe, Verified 07/05/24 11:24) ANAPHALAXIS Medication List - Last Reconciled 07/05/24 by Rocio Jordan MD albuterol sulfate 90 mcg/actuation 2 puffs inhalation Q4-6H PRN epinephrine 0.3 mg (0.3 mL) IM DIRECTED fluoxetine 10 mg PO DAILY hydrochlorothiazide 12.5 mg PO DAILY 90 days lactobacillus combination no.4 (Probiotic) 3,000 mmu cells PO DAILY levocetirizine 5 mg PO DAILY lorazepam 0.5 mg PO DAILY PRN magnesium glycinate 250mg multivitamin 1 tab PO DAILY olmesartan 10 mg (2 x 5 mg) PO DAILY pantoprazole 40 mg PO DAILY Tobacco use date assessed: 07/05/24 Dental Screening Dental Screen Date: 07/05/24 Did you have a dental visit in the last 12 months?: Yes Did you have a dental problem in the last 6 months where you did not have access to dental care?: No Was dental information given to patient?: Patient has dentist HPI Annual PE-reschedule HPI Details 59 year-old lady with hypertension, history of impaired fasting glucose, history of depression in remission, morbid obesity and chronic GERD, here today for her physical exam. Has been feeling well, gets occasional wheezing and cough when she goes outside and smells freshly cut grass or during springtime when everything starts to nowak. Depression stable and controlled on current dose of fluoxetine, and takes lorazepam only as needed. Up-to-date with her cervical cancer screening, breast cancer screening and screening for colonoscopy. [facility] Medical History Depression, major, in remission Facial skin lesion Impaired fasting glucose Postmenopausal symptoms LGSIL (low grade squamous intraepithelial dysplasia) Morbid obesity Bee sting allergy GERD (gastroesophageal reflux disease) Essential hypertension Surgical History S/P total knee arthroplasty History of ureter stent History of knee surgery History of vaginal hysterectomy Hx of cholecystectomy History of appendectomy History of removal of ovarian cyst Status post breast reduction Family History Father Myocardial infarction Mother No problems noted. Brother No problems noted. Brother No problems noted. Sister Breast CA Sister No problems noted. Sister No problems noted. Social History Housing: House Alcohol intake: current Patient Tobacco Use Status: Never used Tobacco e-Cigarette/Vaping Use: Never Used Current occupational status: employed Cognitive needs: No Hearing needs: No Vision needs: Yes Female Reproductive History Menstrual Age of Menarche: 7 Questionnaire PHQ-9 Over the last 2 weeks, how often have you been bothered by any of the following problems? 1. Little interest or pleasure in doing things: not at all 2. Feeling down, depressed, or hopeless: not at all 3. Trouble falling or staying asleep, or sleeping too much: several days 4. Feeling tired or having little energy: several days 5. Poor appetite or overeating: not at all 6. Feeling bad about yourself - or that you are a failure or have let yourself or your family down: not at all 7. Trouble concentrating on things, such as reading the newspaper or watching television: not at all 8. Moving or speaking so slowly that other people could have noticed. Or the opposite - being so fidgety or restless that you have been moving around a lot more than usual: not at all 9. Thoughts that you would be better off or of hurting yourself in some way: not at all Total score: 2 Depression Screening Interpretation: Negative Depression Screening Done: Yes 46434 - PHQ-9 Billing: Yes Source: Developed by Drs. Epi Resendez, Faye Garay, Dalton Rasmussen and colleagues, with an educational deepti from [employer]. Thrive Questionnaire Date Thrive assessed: 06/28/24 I am a: Patient What is your living situation today?: I have a steady place to live Within the past 12 months, did the food you bought not last and you didn't have the money to get more?: Never true Within the past 12 months, did you worry whether your food would run out before you got money to buy more?: Never true Do you have trouble paying for medicines?: No Do you have trouble getting transportation to medical appointments?: No Do you have trouble paying your heating and electricity bill?: No Do you have trouble taking care of your child, family member or friend?: No Do you have trouble with day-to-day activities such as bathing, preparing meals, shopping, managing finances, etc.?: No Are you currently unemployed and looking for a job?: No Are you interested in more education?: No Please select the resources that you would like help with: None Currently or been in a relationship where the following occur: No concerns reported THRIVE Score: 0 AUDIT C Alcohol Use Questionnaire (AUDIT-C) 1. How often do you have a drink containing alcohol?: 2-3 times a week 2. How many drinks containing alcohol do you have on a typical day when you are drinking?: 1 or 2 3. How often do you have six or more drinks on one occasion?: Never Total Score: 3 NADIA-7 AMB Questionnaire NADIA-7 Date NADIA - 7 assessed: 07/05/24 Feeling nervous, anxious, or on edge: 0 = Not at all Not being able to stop or control worryin = Not at all Worrying too much about different things: 0 = Not at all Trouble relaxin = Not at all Being so restless that it is hard to sit still: 0 = Not at all Becoming easily annoyed or irritable: 0 = Not at all Feeling afraid as if something awful might happen: 0 = Not at all Total NADIA-7 score (0-4 normal; 5-9 mild; 10-14 moderate; 15-21 severe): 0 Source: Developed by Drs. Epi Resendez, Faye Garay, Dalton Rasmussen and colleagues, with an educational deepti from [employer]. NADIA-7 Assessment Billing NADIA-7 Assessment Tool: NADIA-7 Assessment 21483 Review of Systems Const All systems reviewed & are unremarkable except as noted in HPI and below Denies headache(s) Eyes Details: seen at [facility] 12/2023, wears glasses for ENT Details: Dental prophylaxis every 6 months Denies dizziness, Denies headache(s), Denies hoarseness and Denies nasal discharge Card Reports no additional complaints Resp Reports no additional complaints GI Reports as per HPI and Reports no additional complaints Details: Sees Dr. Thomas for her routine Pap and pelvic exam Reports no additional complaints Musc Reports no additional complaints Skin/Breast Denies breast pain, Denies breast mass and Denies rash Neuro Denies dizziness and Denies headache(s) Psych Reports no additional complaints Endo Reports no additional complaints Real/Lymph Reports no additional complaints Aller/Immun Reports no additional complaints Physical exam (Primary Care) Vital Signs: Last Vital Signs Temp 98.0 F 07/05/24 11:11 Pulse 72 07/05/24 11:11 Resp 16 07/05/24 11:11 BP 130/90 H 07/05/24 11:33 Pulse Ox 94 07/05/24 11:11 Oxygen Delivery Method Room Air 07/05/24 11:11 BMI result Body Mass Index 48.2 BMI Assessment/Plan discussion: High BMI High, discussed plan: lifestyle, weight reduction, dietary and physical activity Tobacco/Smoking Status: Tobacco use Status Tobacco use date assessed 07/05/24 07/05/24 11:04 Patient Tobacco Use Status Never used Tobacco 07/05/24 11:04 e-Cigarette/Vaping Use Never Used 07/05/24 11:04 PHQ-9: PHQ-9 Score PHQ-9: Total score 2 07/05/24 11:22 Depression Screening Interpretation: Negative Thrive Assessment: Date of Thrive Assessment Date Thrive assessed 06/28/24 07/05/24 11:04 Currently or been in a relationship where the following occur: No concerns reported Const General: comfortable and no acute distress Nutritional Appearance: obese Orientation/consciousness: patient oriented x3 HENMT Ears: external ears normal General nose exam: Normal external nose present, Normal nasal mucous membranes and turbinates present and No nasal discharge present Mouth: oropharynx normal and moist mucous membranes Eyes General: appearance normal, both eyes and all related structures Neck Neck: Yes full ROM, Yes no lymphadenopathy and Yes supple Resp Effort & Inspection: normal respiratory effort and able to speak in complete sentences Auscultation: clear to auscultation bilaterally Cardio Rate: regular rate Rhythm: regular rhythm Heart sounds: S1 normal heart sound present and S2 normal heart sound present GI Inspection: Yes normal to inspection Palpation (GI): Soft to palpation, nontender and no masses Auscultation: normal bowel sounds General: Yes no CVA tenderness Back/Spine/Pelvis Back: no CVA tenderness and No back tenderness Skin General skin exam: no rashes or lesions noted Neuro General: patient oriented x3, gait normal, tone normal, moves all extremities, Normal light touch and pain sensation and no focal motor deficits Cognition (Neuro): normal cognition Gait exam (Neuro): Normal gait present Motor exam (neuro): 5/5 motor strength present throughout Extrem General: Yes normal to inspection, Yes full ROM, Yes no joint enlargement, Yes no clubbing, cyanosis or edema and Yes normal gait Psych Appearance: grossly normal and well kempt Mental Status: mental status grossly normal Speech and movement: Normal speech and movement present Affect: normal affect Attitude: cooperative Thought process: Normal thought process present Thought content: Normal thought content present Results Reviewed Results Reviewed: Name: Anika Tran Age/Sex: 57/F : 1965 Unit#: [id number] Attend Dr: Rocio Jordan MD Re10/29/22 Status: DEP REF Location: [facility] Disch: SPEC : [id number] JUSTIN: 10/29/22 STATUS: COMP REQ : [id number] RECD: 10/29/[address]: Rocio Jordan MD COMP: 10/29/224 ENTERED: 10/29/[address] [facility] [address]: ORDERED: Met Prof Fast, AST, ALT, Lipid Panel Test Result Flag Reference Sodium 141 135-145 mmol/L Potassium 3.7 3.3-5.1 mmol/L CL 102 96-108 mmol/L CO2 30 H 22-29 mmol/L Gap 13 12-20 BUN 13 9-16 mg/dL Creat 0.75 0.5-1.4 mg/dL EGFR > 60 NOTE: For -Emirati individuals, multiply the result by 1.210. Chronic Kidney Disease: Estimated GFR < 60 mL/min/1.73m2 Severe Kidney Disease: Estimated GFR < 15 mL/min/1.73m2 FBS 108 H 60-99 mg/dL A fasting glucose from 100-125 mg/dl is considered impaired (pre-diabetes). CA 9.4 8.4-10.2 mg/dL AST (GOT) 31 5-31 U/L ALT (GPT) 44 H 0-31 U/L Triglyceride 223 mg/dL Desirable Triglyceride: less than 150 mg/dL Borderline High Triglyceride 150-199 mg/dL High Triglyceride: 200-499 mg/dL Very High Triglyceride: greater than or equal to 5OO mg/dL Chol 180 mg/dL Desirable Cholesterol: less than 200 mg/dL Borderline High Cholesterol: 200-239 mg/dL High Cholesterol: greater than 239 mg/dL LDL Calculated 82 mg/dl Desirable LDL: less than 100 mg/dL Near Optimal/Above Optimal LDL: 110-129 mg/dL Borderline High LDL: 130-159 mg/dL High LDL: 160-189 mg/dL Very High LDL: greater than or equal to 190 mg/dL HDL 54 mg/dL Desirable HDL: greater than 40 mg/dL Note: This HDL assay may give artificially low results in patients with liver disease. Coding Level of Care Code Est Pt Prev Care 40-64y(35023) Diagnoses Annual visit for general adult medical examination with abnormal findings Z00.01 Essential hypertension I10 Morbid obesity E66.01 Bee sting allergy Z91.030 Depression, major, in remission F32.5 Reactive airway disease J45.909 Additional Codes PHQ-9 - 40123 - PHQ-9 Billing: Yes ([id number]) NADIA-7 Assessment Billing - NADIA-7 Assessment Tool: NADIA-7 Assessment 32172 ([id number]) Assessment & Plan Assessment & Plan (1) Annual visit for general adult medical examination with abnormal findings: Code(s): Z00.01 - Encounter for general adult medical examination with abnormal findings Plan: Will check appropriate labs. Continue regular dental visit every 6 months and regular eye exams, at least every 2 years. Take adequate calcium in diet and vitamin-D 3 at 2000 IU per cap once a day, in addition to weight-bearing exercises to help maintain good muscle tone and weight control. Instructed to do self-breast exam, and continue with yearly mammogram, currently up-to-date done last December 2023. Has an appointment with Dr. Thomas for her routine Pap and pelvic exams already scheduled later this year. Up-to-date with her screening colonoscopy done by Dr. Inocencia degroot due until 2028. Up-to-date with her flu vaccine and COVID vaccine boosters, as well as Tdap, reminded to get her shingles vaccination (2) Essential hypertension: Code(s): I10 - Essential (primary) hypertension Category: Medical Plan: Blood pressure at goal of less than 130/80. Continue with current medication. Reinforced importance of following a low sodium diet, getting regular exercise, and lowering stress levels. (3) Morbid obesity: Code(s): E66.01 - Morbid (severe) obesity due to excess calories Category: Medical Plan: Y Recommended focusing on improving health instead of dieting. Mediterranean diet is a healthy diet that helps, limit food high in fat, sugar, and calories. Eat slowly, pay attention to portion sizes, plan your meals ahead of time, start regular physical activity, at least 150 minutes of moderate intensity exercise per week (4) Bee sting allergy: Code(s): Z91.030 - Bee allergy status Category: Medical Plan: Refill sent for EpiPen (5) Depression, major, in remission: Code(s): F32.5 - Major depressive disorder, single episode, in full remission Category: Medical Plan: Well controlled on fluoxetine, refill sent together with lorazepam to take only as needed for acute anxiety attacks. (6) Reactive airway disease: Code(s): J45.909 - Unspecified asthma, uncomplicated Plan: Prescription sent for albuterol inhaler to use as needed for episodes of wheezing and bronchospasm Orders: Orders Aspartate Amino Transferase 07/02/24 F32.5 - Major depressive disorder, single episode, in full remission, R73.01 - Impaired fasting glucose, E66.01 - Morbid (severe) obesity due to excess calories, Z91.030 - Bee allergy status, I10 - Essential (primary) hypertension, K21.9 - Gastro-esophageal reflux disease without esophagitis Complete Blood Count Auto Diff 07/02/24 F32.5 - Major depressive disorder, single episode, in full remission, R73.01 - Impaired fasting glucose, E66.01 - Morbid (severe) obesity due to excess calories, Z91.030 - Bee allergy status, I10 - Essential (primary) hypertension, K21.9 - Gastro-esophageal reflux disease without esophagitis Alanine Aminotransferase 07/02/24 F32.5 - Major depressive disorder, single episode, in full remission, R73.01 - Impaired fasting glucose, E66.01 - Morbid (severe) obesity due to excess calories, Z91.030 - Bee allergy status, I10 - Essential (primary) hypertension, K21.9 - Gastro-esophageal reflux disease without esophagitis Basic Metabolic Panel Fasting 07/02/24 F32.5 - Major depressive disorder, single episode, in full remission, R73.01 - Impaired fasting glucose, E66.01 - Morbid (severe) obesity due to excess calories, Z91.030 - Bee allergy status, I10 - Essential (primary) hypertension, K21.9 - Gastro-esophageal reflux disease without esophagitis Lipid Panel 07/02/24 F32.5 - Major depressive disorder, single episode, in full remission, R73.01 - Impaired fasting glucose, E66.01 - Morbid (severe) obesity due to excess calories, Z91.030 - Bee allergy status, I10 - Essential (primary) hypertension, K21.9 - Gastro-esophageal reflux disease without esophagitis Vitamin D 25-OH Total 07/02/24 F32.5 - Major depressive disorder, single episode, in full remission, R73.01 - Impaired fasting glucose, E66.01 - Morbid (severe) obesity due to excess calories, Z91.030 - Bee allergy status, I10 - Essential (primary) hypertension, K21.9 - Gastro-esophageal reflux disease without esophagitis Medications: Changed From albuterol sulfate 90 mcg/actuation 2 puffs inhalation Q4-6H PRN 6.7 grams 1RF shortness of breath or wheezing To albuterol sulfate 90 mcg/actuation 2 puffs inhalation Q4-6H PRN 6.7 grams 4RF shortness of breath or wheezing Refilled fluoxetine 10 mg PO DAILY 90 caps 3RF F32.9 - Major depressive disorder, single episode, unspecified epinephrine 0.3 mg (0.3 mL) IM DIRECTED 2 ea 2RF anaphylaxis lorazepam 0.5 mg PO DAILY PRN 10 tabs 0RF Acute anxiety attack (plane travel)
[2024-07-05 11:11] VITALS: BP 138/92; PULSE 72; RESP 16; TEMP 36.7; O2SAT 94; BMI 48.2
[2024-07-05 11:33] VITALS: BP 130/90
== END 2024-07-05 12:00 | disposition home or self-care (01) ==
PROVIDERS: PCP Internal Medicine; Visit Provider Internal Medicine
DX: Z00.00 Encounter for general adult medical examination without abnormal findings (principal); I10 Essential (primary) hypertension; E66.01 Morbid (severe) obesity due to excess calories; Z68.42 Body mass index [BMI] 45.0-49.9, adult; Z91.030 Bee allergy status; F32.5 Major depressive disorder, single episode, in full remission; J45.909 Unspecified asthma, uncomplicated

== ENCOUNTER → 2024-07-05 09:56 | Outpatient (BNVA) | payer OTHER, SELFPAY | PROVIDERS: PCP Internal Medicine; Visit Provider Internal Medicine | DX: Z00.01 Encounter for general adult medical examination with abnormal findings (principal); F32.5 Major depressive disorder, single episode, in full remission; R73.01 Impaired fasting glucose; E66.01 Morbid (severe) obesity due to excess calories; Z68.42 Body mass index [BMI] 45.0-49.9, adult; I10 Essential (primary) hypertension; K21.9 Gastro-esophageal reflux disease without esophagitis; J45.909 Unspecified asthma, uncomplicated; Z91.030 Bee allergy status; Z71.3 Dietary counseling and surveillance | CPT/HCPCS: 96127; 99396 ==

== ENCOUNTER 2024-07-13 09:54 | Outpatient (REF) | payer OTHER, SELFPAY ==
[2024-07-13 13:28] LABS: MANUAL DIFF FLAG NO
[2024-07-13 13:42] LABS: Basophils Percent Auto 0.6 % (0-2); Eosinophils Absolute Auto 0.2 X10*3/uL (0.0-0.4); Eosinophils Percent Auto 3.7 % (0-4); Hematocrit 40.5 % (37.0-47.0); Imm Gran Abs Auto 0.01 X10*3/uL (0.00-0.03); Imm Gran Pct Auto 0.2 % (0.0-0.4); Lymphocytes Absolute Auto 2.1 X10*3/uL (1.2-4.9); Lymphocytes Percent Auto 33.7 % (20-40); Mean Corpuscular HGB Conc 34.6 g/dl (31.0-35.0); Mean Corpuscular Hemoglobin 32.4 pg (27.0-33.0); Mean Corpuscular Volume 93.8 fL (80.0-98.0); Mean Platelet Volume 9.5 fL (9.4-12.3); Monocytes Absolute Auto 0.5 X10*3/uL (0.1-1.2); Monocytes Percent Auto 8.3 % (2-11); Neutrophils Absolute Auto 3.3 x10*3/uL (2.0-8.3); Neutrophils Percent Auto 53.5 % (45-73); Platelet Count 220 X10*3/uL (160-400); Red Blood Count 4.32 X10*6/uL (4.20-5.50); Red Cell Distribution Width 12.2 % (11.0-16.0); White Blood Count 6.2 X10*3/uL (4.8-10.8)
[2024-07-13 14:11] LABS: Alanine Aminotransferase 47 U/L (0-31); Anion Gap 11 (12-20); Aspartate Amino Transferase 38 U/L (5-31); Blood Urea Nitrogen 16 mg/dL (9-16); Calcium 9.1 mg/dL (8.4-10.2); Carbon Dioxide 28 mmol/L (22-29); Chloride 105 mmol/L (96-108); Cholesterol 187 mg/dL (<200); Estimated Glomerular Filt Rate > 60; Glucose Fasting 117 mg/dL (60-99); HDL Cholesterol 60 mg/dL (>40); LDL Cholesterol Calculated 90 mg/dL (<100); Potassium 4.1 mmol/L (3.3-5.1); Sodium 140 mmol/L (135-145); Triglycerides 189 mg/dL (<150); Vitamin D 25-OH Total 43.8 ng/mL (>30)
== END 2024-07-13 09:55 | disposition home or self-care (01) ==
LOC: HO.HMGCLDS 09:54
PROVIDERS: PCP Internal Medicine; Visit Provider Internal Medicine
DX: F32.5 Major depressive disorder, single episode, in full remission (principal); R73.01 Impaired fasting glucose; E66.01 Morbid (severe) obesity due to excess calories; Z91.030 Bee allergy status; I10 Essential (primary) hypertension; K21.9 Gastro-esophageal reflux disease without esophagitis
CPT/HCPCS: 36415; 80048; 80061; 82306; 84450; 84460; 85025

== ENCOUNTER 2024-07-27 08:59 | Outpatient (AMB) | payer OTHER, SELFPAY ==
[2024-07-27 09:02] VITALS: BP 142/70; PULSE 98; O2SAT 96; BMI 48.2
--- NOTE | 2024-07-27 09:02 | A.OFFVIS_ITS ---
Vital Signs 07/27/24 09:02 Height 5 ft Weight 247 lb BMI 48.2 BP 142/70 H Blood Pressure Location Rt brachial Position Sitting Pulse 98 Pulse Source Pulse Oximeter Pulse Oximetry (%) 96 Oxygen Delivery Method Room Air Intake Visit Reasons: Abdominal distension Intake Note: NEW PATIENT for abd distention and fecal abn. Chief Complaint; C.O. loose, oily stools, constipation and diarrhea intermittently, GI upset / abd cramping, epigastric pain, and dysphagia with certain foods. Pt reports hx of reflux but has not taken PPI for some time. Pt is taking probiotic per PCP. [place] in 2019 w/ Dr. Pro with 10 year recall unless otherwise suggested by specialist. Pt would also like to discuss use of GLP 1 to decide if this is an OK option for her for weight loss. PCP advised speaking to GI specialist with regard to sx management prior to starting GLP 1 therapy. 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 No esophagitis or Gomez?s. 3 cm hiatal hernia and schatzki ring noted. Bx taken from GEJ and esophagus Stomach: Erythema and inflammation at antrum noted. Biopsies were obtained. Grade 2 flap valve on retroflexed examination of the cardia. Duodenum: Normal bulb and descending duodenum, bx taken Intervention: Biopsies as noted above Colonoscopy Instrument: Olympus PCF H 180AL variable stiffness pediatric colonoscope Monitoring: Vital signs and clinical assessment, continuous EKG monitoring, Pulse oximetry, Carbon Dioxide monitoring and blood pressure monitoring were done throughout the procedure. Colon withdrawal time was 15 minutes. Procedure: The patient was placed in the left lateral decubitis position and pre-procedure medications were administered. After a digital rectal examination of the ano-rectum, the video colonoscope was inserted into the rectum and advanced through the colon to the cecum. The colonoscope was slowly withdrawn in a retrograde panoramic fashion and the colon mucosa was carefully examined including a retroflexed view of the rectum. Findings and interventions are described below. Procedure Difficulty: Without difficulty Findings: Terminal Ileum ? Normal, bx taken Cecum ? Normal Ascending Colon ?Normal Transverse Colon -Normal Descending Colon ?Normal Sigmoid Colon ? several small diverticula noted, 8-10 mm sessile polyp noted and removed with cold snare Rectum ? small grade I internal hemorrhoids noted Anorectum -Normal Colon preparation: Excellent Impression and Post Procedure Diagnosis: Endoscopy Findings: gastritis, hiatal hernia schatzki ring hemorrhoids diverticular disease polyp Plan: Await pathology results High fiber diet, avoid straining at stool, consider PPI if not taking, if h pylori pos then treat, check nsaid hx Repeat Colonoscopy interval based on path results - in 3-5 years if polyps are adenomatous and 10 years if polyps are hyperplastic. TODAY'S VISIT 59-year-old female with past medical history of depression, obesity, GERD, hypertension, and anxiety is here today for initial consultation. Patient had colonoscopy in 2019 as mentioned above and was found to have benign polyps and colonoscopy was recommended in 10 years. Patient reports aggravating symptoms of postprandial diarrhea. Reports that sometimes bowel movements constantly throughout the whole day. Recently patient has changed her diet she wishes to get on a weight loss program with GLP , however she was told by PCP that GI need s to evaluate her. There is a chance that she might get a pancreatitis. Patient is status post cholecystectomy. Denies any true abdominal pain or bloating, however she does can reports feeling gassy. Patient reports that the stool consistency varies from oily to mushy, however never solid. She does admit that just in the past few days she started changing her diet and started taking probiotic and she sees subtle difference. Less stooling and not as loose as before. Patient denies any melena, hematochezia. Denies any acid reflux. Denies dyspepsia, dysphagia or odynophagia. Patient no longer is taking pantoprazole. Denies any postprandial abdominal pain or discomfort [facility] Medical History Depression, major, in remission Facial skin lesion Impaired fasting glucose Postmenopausal symptoms LGSIL (low grade squamous intraepithelial dysplasia) Morbid obesity Bee sting allergy GERD (gastroesophageal reflux disease) Essential hypertension Surgical History S/P total knee arthroplasty History of ureter stent History of knee surgery History of vaginal hysterectomy Hx of cholecystectomy History of appendectomy History of removal of ovarian cyst Status post breast reduction Family History Father Myocardial infarction Mother No problems noted. Brother No problems noted. Brother No problems noted. Sister Breast CA Sister No problems noted. Sister No problems noted. Social History Housing: House Alcohol intake: current Patient Tobacco Use Status: Never used Tobacco e-Cigarette/Vaping Use: Never Used Current occupational status: employed Cognitive needs: No Hearing needs: No Vision needs: Yes Female Reproductive History Menstrual Age of Menarche: 7 Review of Systems Const Denies weight gain and Denies weight loss ENT Reports no additional complaints, Denies dysphagia and Denies odynophagia Card Reports no additional complaints Resp Reports no additional complaints GI Denies abdominal pain, Denies belching, Denies melena, Denies bloating, Denies change in bowel habits, Denies dysphagia, Denies excessive flatus, Denies dyspepsia, Denies heartburn, Denies diarrhea, Reports loose stools, Denies nausea, Denies odynophagia and Denies vomiting Reports no additional complaints Musc Reports no additional complaints Neuro Reports no additional complaints Psych Reports no additional complaints Endo Reports no additional complaints Physical Exam Vital Signs: Last Vital Signs Pulse 98 07/27/24 09:02 BP 142/70 H 07/27/24 09:02 Pulse Ox 96 07/27/24 09:02 Oxygen Delivery Method Room Air 07/27/24 09:02 BMI result Body Mass Index 48.2 Assessment & Plan Assessment & Plan (1) GERD (gastroesophageal reflux disease): Code(s): K21.9 - Gastro-esophageal reflux disease without esophagitis Category: Medical Qualifiers: Esophagitis presence: without esophagitis Qualified Code(s): K21.9 - Gastro-esophageal reflux disease without esophagitis (2) Postprandial diarrhea: Code(s): K52.9 - Noninfective gastroenteritis and colitis, unspecified (3) Postprandial epigastric pain: Code(s): R10.13 - Epigastric pain (4) Postprandial abdominal bloating: Code(s): R14.0 - Abdominal distension (gaseous) Plan Patient reports that GERD is controlled for the most part with food. She does admit to epigastric pain postprandially. Will send her for upper GI with barium swallow to rule out reflux/hernia/gastritis. Will send to check lipase, transglutaminase and thyroid study. Patient can start sucralfate at bedtime, this will hopefully help her pain and will protect her gastric mucosa from over spell of bile due to status post cholecystectomy. Patient was also encouraged not to eat late at night. Avoid eating greasy food. She is doing well starting just few days ago on her diet. Patient can start taking Benefiber dual action pre and probiotic every morning that will help her bulk stools. We also discuss low FODMAP diet she might benefit to reduce her symptoms of bloating. List of food recommended as well as list of food to avoid given to patient. Patient is interesting in losing weight. She might want to try berberine to start with to see if will have any effects. Might help with cravings. Patient will follow-up in the office in 3 months, sooner on as needed basis. Patient is agreeable to this plan and verbalizes understanding of instructions. She was given the opportunity to ask questions and all questions answered. Thank you for allowing me to participate in her care Orders: Orders Lipase Today R10.9 - Unspecified abdominal pain Transglutaminase IgA Today R10.9 - Unspecified abdominal pain TSH reflex Free T4 Today K59.00 - Constipation, unspecified Liver Panel Today R74.01 - Elevation of levels of liver transaminase levels FL upper GI w Ba Swallow Today K21.9 - Gastro-esophageal reflux disease without esophagitis Medications: New sucralfate 1 g PO BEDTIME 30 tabs 4RF R19.7 - Diarrhea, unspecified Discontinued pantoprazole Discontinued Reason: Patient no longer taking 40 mg PO DAILY 90 tabs 1RF Coding Level of Care Code New Pt Level 4 (96166) Diagnoses Gastroesophageal reflux disease without esophagitis K21.9 Esophagitis presence: without esophagitis Postprandial diarrhea K52.9 Postprandial epigastric pain R10.13 Postprandial abdominal bloating R14.0 Time Spent (min) 50 Comment 35 minutes spent with patient and additional 15 minutes spent reviewing her records
== END 2024-07-27 09:57 | disposition home or self-care (01) ==
LOC: HO.HGI 09:00
PROVIDERS: PCP Internal Medicine; Visit Provider Nurse Practitioner Family
DX: K21.9 Gastro-esophageal reflux disease without esophagitis (principal); K52.9 Noninfective gastroenteritis and colitis, unspecified; R10.13 Epigastric pain; R14.0 Abdominal distension (gaseous)
CPT/HCPCS: 99204

== ENCOUNTER → 2024-07-27 08:59 | Outpatient (BNVA) | payer OTHER, SELFPAY | PROVIDERS: PCP Internal Medicine; Visit Provider Nurse Practitioner Family | DX: K21.9 Gastro-esophageal reflux disease without esophagitis (principal); K52.9 Noninfective gastroenteritis and colitis, unspecified; R10.13 Epigastric pain; R14.0 Abdominal distension (gaseous) | CPT/HCPCS: 99202 ==

== ENCOUNTER 2024-08-10 08:37 | Outpatient (REF) | payer OTHER, SELFPAY ==
[2024-08-10 10:58] LABS: Alanine Aminotransferase 38 U/L (0-31); Alkaline Phosphatase 81 U/L (39-117); Aspartate Amino Transferase 28 U/L (5-31); Bilirubin Direct 0.2 mg/dL (0.0-0.5); Bilirubin Total 0.6 mg/dL (0.0-1.0); Lipase 15 U/L (8-78); TSH reflex Free T4 1.52 uIU/mL (0.32-4.0); Total Protein 6.5 g/dL (6.5-8.0)
[2024-08-11 20:54] LABS: Transglutaminase IgA <1.0 U/mL
== END 2024-08-10 08:38 | disposition home or self-care (01) ==
LOC: HO.HMGCLDS 08:37
PROVIDERS: PCP Internal Medicine; Visit Provider Nurse Practitioner Family
DX: R10.9 Unspecified abdominal pain (principal); K59.00 Constipation, unspecified; R74.01 Elevation of levels of liver transaminase levels
CPT/HCPCS: 36415; 80076; 83690; 84443; 86364

== ENCOUNTER 2024-10-28 08:09 | Outpatient (REF) | payer OTHER, SELFPAY ==
--- NOTE | ~2024-10-28 | FL_ITS ---
EXAMINATION: XR GI SERIES CLINICAL INFORMATION: Gastroesophageal reflux disease without esophagitis. COMPARISON: None available. TECHNIQUE: Routine upper GI barium swallow was performed in upright view with thick barium and effervescent granules. FINDINGS: Following oral administration of thick barium with effervescent granules in different positions there is normal propagation of bolus from the oral cavity through the pharynx, esophagus into stomach without any evidence of obstruction, narrowing or stricture. No extrinsic compression seen. There is slightly diminished peristalsis in the distal esophagus.. On placing patient supine and prone lying the course, caliber and peristalsis of the stomach, duodenal bulb and this CT is normal. The mucosal pattern of the stomach and duodenum is normal. Incidental finding of cholecystectomy. There is no gastroesophageal reflux or hiatal hernia. FLUOROSCOPY TIME: 2 minutes 11 seconds. DOSE AREA PRODUCT: 2748 uGy-m2 (microgray-meter squared) FL/FL upper GI w Ba Swallow IMPRESSION: Slight decreased peristalsis in the distal esophagus but no obstruction seen. No gastroesophageal reflux or hiatal hernia. Electronically signed by: Hamlet Jung MD 10/28/2024 09:31 AM EDT
--- OUTSIDE RECORDS SUMMARY | 2024-10-28 08:14 | XMS_ITS | Clinical Summary ---
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 Active losartan-hydroCH LOROthiazide (HYZAAR) 50-12.5 mg per tablet Take 1 tablet by mouth daily. Active MULTIVITAMIN ORAL Take by mouth daily. Active MAGNESIUM ORAL Take by mouth daily. Active loratadine (CLARITIN) 10 mg tablet Take 10 mg by mouth daily. Active Active Problems Problem Noted Date Diagnosed Date Right knee pain 11/02/2018 Social History Tobacco Use Types Packs/Day Years Used Date Smoking Tobacco: Never Assessed Education Answer Date Recorded Are you interested in more education? Not on jem e 07/19/2022 Are you concerned about learning? Not on file 07/19/2022 No 07/19/2022 No 07/19/2022 Digital Access Answer Date Recorded No 08/17/2022 No 08/17/2022 Reliable internet access at home? Not on file 08/17/2022 Device with a working camera? Not on file Comments Unknown Sex and Gender Information Value Date Recorded Sex Assigned at Not on file Legal Sex Female 12:11 PM EDT Gender Identity Not on file Sexual Orientation Not on file Last Filed Vital Signs Vital Sign Reading Time Taken Comments Blood Pressure - - Pulse - - Temperature - - Respiratory Rate - - Oxygen Saturation - - Inhaled Oxygen Concentration - - Weight 106.8 kg (235 lb 6.4 oz) 11/06/2018 2:57 PM EDT Height 155.6 cm (5' 1.25 ) 11/06/2018 2:57 PM ED T Body Mass Index 44.12 11/06/2018 2:57 PM EDT Plan of Treatment Health Maintenance Due Date Last Done Comments CREATININE LEVEL 1964 LIPID PANEL 1964 POTASSIUM LEVEL 1964 DEPRESSION SCREENING 1976 SMOKING Hx and SMOKELESS TOBACCO SCREENING 12/31/1976 HEPATITIS C SCREENING 12/31/1981 HIV ONE-TIME SCREENING (18-6 5 YEARS) 12/31/1981 MAMMOGRAM 2004 COLOGUARD 12/31/2008 COLONOSCOPY 12/31/2008 COLORECTAL CANCER SCREENING 12/31/2008 FIT TEST 12/31/2008 FOBT 12/31/2008 SIGMOIDOSCOPY 12/31/2008 VIRTUAL COLONOSCOPY 12/31/2008 PNEUMOCOCCAL VACCINES (50+ years) (1 of 1 - PCV) 12/31/2013 ZOSTER VACCINES (1 of 2) 12/31/2013 COVID-19 VACCINE (3 - 2023-2 5 season) 2023 05/15/2020, 04/24/2020 Adult Td,Tdap Booster 07/08/2027 07/07/2017 RSV VACCINE (1 - 1-dose 75+ series) 12/31/2038 HEPATITIS A VACCINES Aged Out No long er eligible based on patient's age to complete this topic HIB VACCINES Aged Out No longer eligi ble based on patient's age to complete this topic MENINGOCOCCAL VACCINES (ACWY) Aged Out No longer eligible based on patient's age to complete this topic MENINGOCOCCAL VACCINES (B) Aged Out N o longer eligible based on patient's age to complete this topic Medical Devices Not on file Insurance [facility] [place] [address] [place] [address] [address] [place] [address] [place] [address] [place] [address] [place] [address] [place] [address] [facility] ACO [facility] ACO Care Teams Mailhouse Operator Relationship Specialty Start Date End Date Rocio Jordan MD [facility] [place] [id number] PCP - General Internal Medicine 09/04/18 Additional Source Comments The information contained in this document represents components of the legal health record. It is not the complete legal health record.[facility]
== END 2024-10-28 08:10 | disposition home or self-care (01) ==
LOC: HO.XRAY 08:09
PROVIDERS: PCP Internal Medicine; Visit Provider Nurse Practitioner Family
DX: K21.9 Gastro-esophageal reflux disease without esophagitis (principal)
CPT/HCPCS: 74240

== ENCOUNTER → 2024-10-28 08:10 | Outpatient (BNV) | payer OTHER, SELFPAY | PROVIDERS: PCP Internal Medicine; Visit Provider Radiology Diagnostic Radiology | DX: K21.9 Gastro-esophageal reflux disease without esophagitis (principal) | CPT/HCPCS: 74246 ==

== ENCOUNTER 2024-12-22 08:58 | Outpatient (AMB) | payer OTHER, SELFPAY ==
--- NOTE | 2024-12-22 09:03 | A.OFFVIS_ITS ---
Vital Signs 12/22/24 09:10 Height 5 ft Weight 247 lb BMI 48.2 BP 142/76 H Blood Pressure Location Rt brachial Position Sitting Pulse 72 Pulse Source Pulse Oximeter Pulse Oximetry (%) 97 Oxygen Delivery Method Room Air Intake Visit Reasons: 3 mo f/u r/s 10/27/24 Intake Note: Est pt for GERD mgmt. Discuss colo/egd. CC: C.O. persistence of bowel irregularities (intermittent diarrhea + loose stools), w/o evidence of hematochezia or melena. Pt also reports that her GERD sx have been stable / improved since last visit. BA FL done. 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 She does admit to epigastric pain postprandially. Will send her for upper GI with barium swallow to rule out reflux/hernia/gastritis. Will send to check lipase, transglutaminase and thyroid study. Patient can start sucralfate at bedtime, this will hopefully help her pain and will protect her gastric mucosa from over spell of bile due to status post cholecystectomy. Patient was also encouraged not to eat late at night. Avoid eating greasy food. She is doing well starting just few days ago on her diet. Patient can start taking Benefiber dual action pre and probiotic every morning that will help her bulk stools. We also discuss low FODMAP diet she might benefit to reduce her symptoms of bloating. List of food recommended as well as list of food to avoid given to patient. Patient is interesting in losing weight. She might want to try berberine to start with to see if will have any effects. Might help with cravings. Patient will follow-up in the office in 3 months, sooner on as needed basis. Patient is agreeable to this plan and verbalizes understanding of instructions. She was given the opportunity to ask questions and all questions answered. ? Thank you for allowing me to participate in her care Orders Lipase Today R10.9 Transglutaminase IgA Today R10.9 TSH reflex Free T4 Today K59.00 Liver Panel Today R74.01 FL upper GI w Ba Swallow Today K21.9 New sucralfate 1 g PO BEDTIME 30 tabs 4RF R19.7 Discontinued pantoprazole Discontinued Reason: Patient no longer taking 40 mg PO DAILY 90 tabs 1RF TODAY'S VISIT Patient is here today for follow-up and to discuss going for colonoscopy and upper endoscopy. Patient reports that her symptoms of acid reflux are suppressed for the most part. Patient reports that sucralfate is helpful. Patient is however concerned that her bowels continue to have diarrhea. She is aware that status post cholecystectomy symptoms can happen depending on what she eats. Denies any melena, hematochezia. Denies any issues with anesthesia in the past. Patient denies any history of sleep apnea. Patient is not on any anticoagulation medication. [facility] Medical History Depression, major, in remission Facial skin lesion Impaired fasting glucose Postmenopausal symptoms LGSIL (low grade squamous intraepithelial dysplasia) Morbid obesity Bee sting allergy GERD (gastroesophageal reflux disease) Essential hypertension Surgical History S/P total knee arthroplasty History of ureter stent History of knee surgery History of vaginal hysterectomy Hx of cholecystectomy History of appendectomy History of removal of ovarian cyst Status post breast reduction Family History Father Myocardial infarction Mother No problems noted. Brother No problems noted. Brother No problems noted. Sister Breast CA Sister No problems noted. Sister No problems noted. Social History Housing: House Alcohol intake: current Patient Tobacco Use Status: Never used Tobacco e-Cigarette/Vaping Use: Never Used Current occupational status: employed Cognitive needs: No Hearing needs: No Vision needs: Yes Female Reproductive History Menstrual Age of Menarche: 7 Review of Systems Const Denies weight gain and Denies weight loss ENT Reports no additional complaints, Denies dysphagia and Denies odynophagia Card Reports no additional complaints Resp Reports no additional complaints GI Denies abdominal pain, Denies belching, Denies melena, Denies bloating, Denies change in bowel habits, Denies dysphagia, Denies excessive flatus, Denies dyspepsia, Denies heartburn, Denies diarrhea, Reports loose stools, Denies nausea, Denies odynophagia and Denies vomiting Reports no additional complaints Musc Reports no additional complaints Neuro Reports no additional complaints Psych Reports no additional complaints Endo Reports no additional complaints Physical Exam Vital Signs: Last Vital Signs Pulse 72 12/22/24 09:10 BP 142/76 H 12/22/24 09:10 Pulse Ox 97 12/22/24 09:10 Oxygen Delivery Method Room Air 12/22/24 09:10 BMI result Body Mass Index 48.2 Const General: healthy appearing, no acute distress and well developed Nutritional Appearance: well nourished and obese Orientation/consciousness: patient oriented x3 Resp Effort & Inspection: normal respiratory effort, able to speak in complete sentences, no tracheal deviation and symmetric chest movement Auscultation: clear to auscultation bilaterally Cardio Rate: regular rate GI Inspection: Yes normal to inspection, No distended and Yes obesity Palpation (GI): Soft to palpation, not firm, nontender and No hepatosplenomegaly present Auscultation: normal bowel sounds General: Yes no CVA tenderness Back/Spine/Pelvis Back: no CVA tenderness Skin General skin exam: elasticity normal, turgor normal and dry skin Neuro General: patient oriented x3 Psych Appearance: grossly normal Mental Status: mental status grossly normal Results Reviewed Results Reviewed: Laboratory Tests 07/13/24 08/10/24 10:10 08:41 Total Bilirubin 0.6 Direct Bilirubin 0.2 AST 38 H 28 ALT 47 H 38 H Alkaline Phosphatase 81 Triglycerides 189 H Lipase 15 TSH 1.52 Tiss Transglutamin IgA <1.0 UPPER GI SERIES WITH BARIUM SWALLOW IMPRESSION: Slight decreased peristalsis in the distal esophagus but no obstruction seen. No gastroesophageal reflux or hiatal hernia. Assessment & Plan Assessment & Plan (1) GERD (gastroesophageal reflux disease): Code(s): K21.9 - Gastro-esophageal reflux disease without esophagitis Category: Medical Qualifiers: Esophagitis presence: without esophagitis Qualified Code(s): K21.9 - Gastro-esophageal reflux disease without esophagitis (2) Postprandial diarrhea: Code(s): K52.9 - Noninfective gastroenteritis and colitis, unspecified (3) Screen for colon cancer: Code(s): Z12.11 - Encounter for screening for malignant neoplasm of colon Plan Discussed with patient the importance of trying to take fiber. Continue taking sucralfate once or twice a day that will also help bulk her stool. Patient will be sent for upper endoscopy and colonoscopy. Message sent to surgical schedulers to bulk patient for both procedures. What to expect before during and after procedure discussed with patient. Stressed the importance of good bowel prep and clear liquid diet day before procedure. I will see patient after the procedure. Patient was encouraged to call us if she will have any worsening GI concerning symptoms. Patient is agreeable to current plan of care verbalizes understanding of instructions. She was given the opportunity to ask questions and all questions answered. Thank you for allowing her to participate in her care Orders: Referrals GI Procedure Notification Z12.11 - Encounter for screening for malignant neoplasm of colon, K21.9 - Gastro-esophageal reflux disease without esophagitis Medications: New bisacodyl (Dulcolax (bisacodyl)) take 4 tabs at noon the day before your colonoscopy 20 mg (4 x 5 mg) PO ONCE 4 tabs 0RF constipation 1 day Z12.11 - Encounter for screening for malignant neoplasm of colon polyethylene glycol 3350 (Miralax) As directed by gastroenterology department at [facility] 238 grams PO ONCE 238 grams 0RF Z12.11 - Encounter for screening for malignant neoplasm of colon methylcellulose (laxative) (Citrucel) take it with full glass of water 500 mg PO DAILY 90 tabs 2RF K59.00 - Constipation, unspecified Refilled sucralfate 1 g PO BEDTIME 90 tabs 4RF R19.7 - Diarrhea, unspecified Coding Level of Care Code Est Pt Level 4 (11186) Complex EM visit Add On G2211 Diagnoses Gastroesophageal reflux disease without esophagitis K21.9 Esophagitis presence: without esophagitis Postprandial diarrhea K52.9 Screen for colon cancer Z12.11 Time Spent (min) 40 Comment 25 minutes spent with patient and additional 15 minutes spent reviewing her records
[2024-12-22 09:10] VITALS: BP 142/76; PULSE 72; O2SAT 97; BMI 48.2
--- OUTSIDE RECORDS SUMMARY | 2024-12-22 09:38 | XMS_ITS | Clinical Summary ---
Author Organization [facility] Address [address] [place] [id number] Phone Care Team Providers Care Industry Operations Investigator Name Role Phone Rocio Jordan MD Primary [...] 12/31/2013 ZOSTER VACCINES (1 of 2) 12/31/2013 INFLUENZA VACCINE (#1) 2024 COVID-19 VACCINE (3 - 2024-2 6 season) 2024 05/15/2020, 04/24/2020 Adult Td,Tdap Booster 07/08/2027 07/07/2017 [...] topic Medical Devices Not on file Insurance [facility] [place] [address] [place] [address] ACO [facility]CO [facility] [place] [address] [place] [address] [place] [address] [place] [address] [place] [address] [place] [address] [facility]CO [facility] ACO Care Teams Industry Operations Investigator Relationship Specialty Start Date End Date Rocio Jordan MD 1962 [facility] [place] [id number] PCP - General Internal Medicine 09/04/18 Additional Source Comments The information contained in this document represents components of the legal health record. It is not the complete legal health record.[facility]
== END 2024-12-22 10:04 | disposition home or self-care (01) ==
LOC: HO.HGI 08:59
PROVIDERS: PCP Internal Medicine; Visit Provider Nurse Practitioner Family
DX: Z01.818 Encounter for other preprocedural examination (principal); Z12.11 Encounter for screening for malignant neoplasm of colon; K52.9 Noninfective gastroenteritis and colitis, unspecified; K21.9 Gastro-esophageal reflux disease without esophagitis
CPT/HCPCS: 99214

== ENCOUNTER → 2024-12-22 08:58 | Outpatient (BNVA) | payer OTHER, SELFPAY | PROVIDERS: PCP Internal Medicine; Visit Provider Nurse Practitioner Family | DX: Z01.818 Encounter for other preprocedural examination (principal); K21.9 Gastro-esophageal reflux disease without esophagitis; K52.9 Noninfective gastroenteritis and colitis, unspecified; K59.00 Constipation, unspecified | CPT/HCPCS: 99212 ==

== ENCOUNTER 2025-01-05 08:43 | Outpatient (REF) | payer OTHER, SELFPAY ==
--- OUTSIDE RECORDS SUMMARY | 2025-01-05 09:13 | XMS_ITS | Clinical Summary ---
Author Organization [facility] Address [address] [place] [phone] Phone Care Team Providers Care Engineer Technical Staff Name Role Phone Rocio Jordan MD Primary [...] topic Medical Devices Not on file Insurance [facility] [place] [address] [place] [address] A[place] [facility] [place] [address] [place] [address] [place] [address] [place] [address] [place] [address] [place] [address] A[place] [facility] ACO Care Teams Engineer Technical Staff Relationship Specialty Start Date End Date Rocio Jordan MD 1962 [facility] [place] [id number] PCP - General Internal Medicine 09/04/18 Additional Source Comments The information contained in this document represents components of the legal health record. It is not the complete legal health record.[facility]
== END 2025-01-05 08:44 | disposition home or self-care (01) ==
LOC: HO.MAMMO 08:43
PROVIDERS: PCP Internal Medicine; Visit Provider Internal Medicine
DX: Z12.31 Encounter for screening mammogram for malignant neoplasm of breast (principal)
CPT/HCPCS: 77063; 77067

== ENCOUNTER → 2025-01-05 09:00 | Outpatient (BNV) | payer OTHER, SELFPAY | PROVIDERS: PCP Internal Medicine; Visit Provider Radiology Body Imaging | DX: Z12.31 Encounter for screening mammogram for malignant neoplasm of breast (principal) | CPT/HCPCS: 77063; 77067 ==

== ENCOUNTER 2025-03-09 15:43 | Outpatient (AMB) | payer OTHER, SELFPAY ==
[2025-03-09 15:52] VITALS: BP 132/84; PULSE 81; RESP 16; TEMP 36.8; O2SAT 96; BMI 47.3
--- NOTE | 2025-03-09 15:52 | A.OFFPC_ITS ---
Vital Signs 03/09/25 15:52 Height 5 ft Weight 242 lb BMI 47.3 BP 132/84 Blood Pressure Location Lt brachial Respiration 16 Pulse 81 Pulse Source Pulse Oximeter Temp 98.3 F Temp Source Oral Pulse Oximetry (%) 96 Oxygen Delivery Method Room Air Intake Visit Reasons: follow up Intake Note: Pt is here today for a f/u Remote Inpatient Coder Required: No Allergies bee pollen (BEE STINGS) Allergy (Severe, Verified 03/09/25 16:40) [employer]PHAL[employer] Medication List - Last Reconciled 03/09/25 by Rocio Jordan MD albuterol sulfate 90 mcg/actuation 2 puffs inhalation Q4-6H PRN epinephrine 0.3 mg (0.3 mL) IM DIRECTED fluoxetine 10 mg PO DAILY hydrochlorothiazide 12.5 mg PO DAILY 90 days levocetirizine 5 mg PO DAILY lorazepam 0.5 mg PO DAILY PRN magnesium glycinate 250mg multivitamin 1 tab PO DAILY olmesartan 10 mg (2 x 5 mg) PO DAILY sucralfate 1 g PO BEDTIME Tobacco use date assessed: 03/09/25 Dental Screening Dental Screen Date: 03/09/25 Did you have a dental visit in the last 12 months?: Yes Did you have a dental problem in the last 6 months where you did not have access to dental care?: No Was dental information given to patient?: Patient has dentist HPI follow up HPI Details 60-year-old female with hypertension an d depression currently stable on fluoxetine 10 mg daily, here today for her follow-up. Blood pressure stable and controlled on olmesartan 10 mg taken once a day. Has been feeling well on fluoxetine with mood stable, she however needs a refill on her lorazepam she takes as needed for anxiety attacks when flying. She has a trip scheduled to go to [place] for [facility] Medical History (Updated 03/09/25 @ 16:42 by Rocio Jordan MD) Depression, major, in remission Impaired fasting glucose Postmenopausal symptoms LGSIL (low grade squamous intraepithelial dysplasia) Morbid obesity Bee sting allergy GERD (gastroesophageal reflux disease) Essential hypertension Surgical History S/P total knee arthroplasty History of ureter stent History of knee surgery History of vaginal hysterectomy Hx of cholecystectomy History of appendectomy History of removal of ovarian cyst Status post breast reduction Family History Father Myocardial infarction Mother No problems noted. Brother No problems noted. Brother No problems noted. Sister Breast CA Sister No problems noted. Sister No problems noted. Social History Housing: House Alcohol intake: current Patient Tobacco Use Status: Never used Tobacco e-Cigarette/Vaping Use: Never Used Current occupational status: employed Cognitive needs: No Hearing needs: No Vision needs: Yes Female Reproductive History Menstrual Age of Menarche: 7 Questionnaire PHQ-9 Over the last 2 weeks, how often have you been bothered by any of the following problems? 1. Little interest or pleasure in doing things: not at all 2. Feeling down, depressed, or hopeless: not at all 3. Trouble falling or staying asleep, or sleeping too much: several days 4. Feeling tired or having little energy: several days 5. Poor appetite or overeating: not at all 6. Feeling bad about yourself - or that you are a failure or have let yourself or your family down: not at all 7. Trouble concentrating on things, such as reading the newspaper or watching television: not at all 8. Moving or speaking so slowly that other people could have noticed. Or the opposite - being so fidgety or restless that you have been moving around a lot more than usual: not at all 9. Thoughts that you would be better off or of hurting yourself in some way: not at all Total score: 2 Depression Screening Interpretation: Negative Depression Screening Done: Yes Source: Developed by Drs. Epi Resendez, Faye Garay, Dalton Rasmussen and colleagues, with an educational deepti from [employer]. Thrive Questionnaire Date Thrive assessed: 06/28/24 I am a: Patient What is your living situation today?: I have a steady place to live Within the past 12 months, did the food you bought not last and you didn't have the money to get more?: Never true Within the past 12 months, did you worry whether your food would run out before you got money to buy more?: Never true Do you have trouble paying for medicines?: No Do you have trouble getting transportation to medical appointments?: No Do you have trouble paying your heating and electricity bill?: No Do you have trouble taking care of your child, family member or friend?: No Do you have trouble with day-to-day activities such as bathing, preparing meals, shopping, managing finances, etc.?: No Are you currently unemployed and looking for a job?: No Are you interested in more education?: No Please select the resources that you would like help with: None Currently or been in a relationship where the following occur: No concerns reported THRIVE Score: 0 NADIA-7 AMB Questionnaire NADIA-7 Date NADIA - 7 assessed: 07/05/24 Source: Developed by Drs. Epi Resendez, Faye Garay, Dalton Rasmussen and colleagues, with an educational deepti from [employer]. Review of Systems Const All systems reviewed & are unremarkable except as noted in HPI and below Denies headache(s) Eyes Details: seen at [facility] 12/20[facility], wears glasses for ENT Details: Dental prophylaxis every 6 months Denies dizziness and Denies headache(s) Card Reports no additional complaints Resp Reports no additional complaints Details: Sees Dr. Thomas for her routine Pap and pelvic exam Reports no additional complaints Musc Reports no additional complaints Skin/Breast Denies breast pain, Denies breast mass and Denies rash Neuro Denies dizziness and Denies headache(s) Psych Reports no additional complaints Endo Reports no additional complaints Real/Lymph Reports no additional complaints Aller/Immun Reports no additional complaints Physical exam (Primary Care) Vital Signs: Last Vital Signs Temp 98.3 F 03/09/25 15:52 Pulse 81 03/09/25 15:52 Resp 16 03/09/25 15:52 BP 132/84 03/09/25 15:52 Pulse Ox 96 03/09/25 15:52 Oxygen Delivery Method Room Air 03/09/25 15:52 BMI result Body Mass Index 47.3 BMI Assessment/Plan discussion: High BMI High, discussed plan: lifestyle, weight reduction, dietary and physical activity Tobacco/Smoking Status: Tobacco use Status Tobacco use date assessed 03/09/25 03/09/25 15:59 Patient Tobacco Use Status Never used Tobacco 03/09/25 15:53 e-Cigarette/Vaping Use Never Used 03/09/25 15:53 Depression Screening Interpretation: Negative Thrive Assessment: Date of Thrive Assessment Date Thrive assessed 06/28/24 03/09/25 15:53 Currently or been in a relationship where the following occur: No concerns reported Const General: no acute distress Nutritional Appearance: obese Orientation/consciousness: patient oriented x3 HENMT Ears: external ears normal General nose exam: Normal external nose present Eyes General: appearance normal, both eyes and all related structures Neck Neck: Yes full ROM, Yes no lymphadenopathy and Yes supple Resp Effort & Inspection: normal respiratory effort and able to speak in complete sentences Auscultation: clear to auscultation bilaterally Cardio Rate: regular rate Rhythm: regular rhythm Heart sounds: S1 normal heart sound present and S2 normal heart sound present Neuro General: patient oriented x3, gait normal, tone normal, moves all extremities and no focal motor deficits Cognition (Neuro): normal cognition Gait exam (Neuro): Normal gait present Extrem General: Yes normal to inspection, Yes full ROM, Yes no joint enlargement, Yes no clubbing, cyanosis or edema and Yes normal gait Psych Appearance: grossly normal and well kempt Mental Status: mental status grossly normal Speech and movement: Normal speech and movement present Affect: normal affect Office Procedures Flu Questionnaire Does the patient have a severe egg allergy?: No Does the patient have severe life threatening allergies?: No Does the patient have a fever or illness today?: No Has the patient ever had Guillain-Tunnelton Syndrome?: No Has the patient ever had any past reaction to a flu shot?: No Immunizations Fluarix [id number] (PF) 45 mcg (15 mcg x 3)/0.5 mL IM syringe Performing Provider: Rocio Jordan MD Performing Location: [facility] Administered by: Ally Welhs CMA on 03/09/25 16:04 Dose Route Admin Location Dispensed Lot Number Expiration Date [facility] [employer] 0.5 mL IM Left Deltoid 0.5 mL [id number] 09/20/25 [id number] [employer] VIS Given Date VIS Provided VIS Publication Date 03/09/25 Single Vaccine 24 Eligibility Eligibility Date Funding Source Not [facility] Eligible 03/09/25 Private Results Reviewed Results Reviewed: Name: Anika Tran Age/Sex: 59/F : 1965 Unit#: [id number] Attend Dr: Rocio Jordan MD Re07/13/24 Status: DEP REF Location: [facility] Disch: SPEC : [id number] JUSTIN: 07/13/24 STATUS: COMP REQ : [id number] RECD: 07/13/24-[address]: Rocio Jordan MD COMP: 07/13/24 ENTERED: 07/13/24 [facility] DR: ORDERED: CBC Auto Diff Test Result Flag Reference WBC 6.2 4.8-10.8 X10*3/uL RBC 4.32 4.20-5.50 X10*6/uL HGB 14.0 12.0-16.0 g/dl HCT 40.5 37.0-47.0 % MCV 93.8 80.0-98.0 fL MCH 32.4 27.0-33.0 pg MCHC 34.6 31.0-35.0 g/dl RDW 12.2 11.0-16.0 % PLT 220 160-400 X10*3/uL MPV 9.5 9.4-12.3 fL Neut Pct Auto 53.5 45-73 % ImGran Pct Auto 0.2 0.0-0.4 % Lymp Pct Auto 33.7 20-40 % Teton Pct Auto 8.3 2-11 % Eos Pct Auto 3.7 0-4 % Baso Pct Auto 0.6 0-2 % NRBC Pct Auto 0.0 0.0-0.2 /100WBC ANC Neut Abs # 3.3 2.0-8.3 x10*3/uL ImGran Abs Auto 0.01 0.00-0.03 X10*3/uL Lymph Abs Auto 2.1 1.2-4.9 X10*3/uL Teton Abs Auto 0.5 0.1-1.2 X10*3/uL Eos Abs Auto 0.2 0.0-0.4 X10*3/uL Baso Abs Auto 0.0 0.0-0.2 X10*3/uL NRBC Abs Auto 0.000 0.0-0.012 X10*3/uL Coding Level of Care Code Est Pt Level 4 (53849) Diagnoses Depression, major, in remission F32.5 Essential hypertension I10 Assessment & Plan Assessment & Plan (1) Depression, major, in remission: Code(s): F32.5 - Major depressive disorder, single episode, in full remission Category: Medical Plan: Currently stable and controlled on fluoxetine takes 10 mg once a day. Will continue on current treatment. Prescription also sent for lorazepam 0.5 mg per tablet to take 1 tablet as needed for acute anxiety attacks when traveling by plane (2) Essential hypertension: Code(s): I10 - Essential (primary) hypertension Category: Medical Plan: Blood pressure at goal of less than 130/80. Continue with olmesartan 10 mg once a day. Reinforced importance of following a low sodium diet, getting regular exercise, and lowering stress levels. Orders: Orders Influenza [id number] Immunization Today Z23 - Encounter for immunization Medications: Refilled lorazepam 0.5 mg PO DAILY PRN 10 tabs 0RF Acute anxiety attack (plane travel)
--- OUTSIDE RECORDS SUMMARY | 2025-03-09 20:36 | XMS_ITS | Clinical Summary ---
Author Organization [facility] Address [address] [place] [phone] Phone Care Team Providers Care Naval Designer Name Role Phone Rocio Jordan MD Primary [...] topic Medical Devices Not on file Insurance [facility] [place] [address] [place] [address] ACO [facility] ACO [facility] [place] [address] [place] [address] [address] [place] [address] [place] [address] [place] [address] ACO [facility] ACO [facility] ACO Care Teams Naval Designer Relationship Specialty Start Date End Date Rocio Jordan MD 1962 [facility] [place] [place] [id number] PCP - General Internal Medicine 09/04/18 Additional Source Comments The information contained in this document represents components of the legal health record. It is not the complete legal health record.[facility]
== END 2025-03-09 16:29 | disposition home or self-care (01) ==
LOC: HO.HMCC 15:44
PROVIDERS: PCP Internal Medicine; Visit Provider Internal Medicine
DX: F32.5 Major depressive disorder, single episode, in full remission (principal); I10 Essential (primary) hypertension; Z23 Encounter for immunization

== ENCOUNTER → 2025-03-09 15:43 | Outpatient (BNVA) | payer OTHER, SELFPAY | PROVIDERS: PCP Internal Medicine; Visit Provider Internal Medicine | DX: I10 Essential (primary) hypertension (principal); F32.5 Major depressive disorder, single episode, in full remission; Z23 Encounter for immunization; Z79.899 Other long term (current) drug therapy | CPT/HCPCS: 90471; 90656; 99212 ==